=== PATIENT | female | born 1990 | race Caucasian/White ===

== ENCOUNTER → 2016-10-08 | Outpatient (CLI) | payer SELFPAY | END | disposition home or self-care (01) | LOC: MW.CHOBGYN 11:12 | PROVIDERS: ATTEND Advanced Practice Midwife | DX: Z34.90 Encounter for supervision of normal pregnancy, unspecified, unspecified trimester (principal) | CPT/HCPCS: 36415; 80305; 81003; 85025; 86592; 86762; 86803; 86850; 86900; 86901; 87086; 87340; 87389 ==

== ENCOUNTER → 2016-11-03 | Outpatient (CLI) | payer SELFPAY | LOC: MW.CHOBGYN 11:40 | PROVIDERS: ATTEND Advanced Practice Midwife | DX: O99.89 Other specified diseases and conditions complicating pregnancy, childbirth and the puerperium (principal); R94.6 Abnormal results of thyroid function studies | CPT/HCPCS: 36415; 80305; 84439; 84443; 87491; 87591; G0145 ==

== ENCOUNTER → 2016-12-01 | Outpatient (CLI) | payer SELFPAY ==
--- NOTE | 2016-12-01 14:51 | US ---
Examination: Greater than 14 weeks transabdominal ultrasound with color Doppler and M-mode evaluatio n. HISTORY: FINDINGS: LMP is 07/16/2016 EVALUATION: Anterior placenta with a unremarkable lie and grade 1. Visually amniotic fluid is within normal limits. Three-vessel cord is seen. Ventricles are within normal limits. Four chamber heart is noted. Heart rate is 130 beats per minute. BIOMETRY AND GESTATIONAL AGE: Biparietal diameter 4.5 cm. The abdominal circumference is 14.5 cm. The femoral length is 3.1 cm wit h head circumference of 16.4 cm. Gestational age is 19 weeks and 5 days. The expected date of delive ry is approximately 04/22/2017. Fetus weight is 301 grams. Overall the fetus is within the 38th perce ntile. Other detail anatomy summarized into PACs sheet after the images. No anatomical anomalies. IMPRESSION: Single active IU with vertebral fetus. Anterior placenta with grade 1, no placenta previa. No anomalies are seen. Amniotic fluid appears within normal limits.
== END | disposition home or self-care (01) ==
LOC: MW.US 10:17
PROVIDERS: ATTEND Advanced Practice Midwife
DX: Z36 Encounter for antenatal screening of mother (principal); Z34.92 Encounter for supervision of normal pregnancy, unspecified, second trimester
CPT/HCPCS: 76805; 76805-26

== ENCOUNTER → 2016-12-09 | Outpatient (CLI) | payer SELFPAY | LOC: MW.CHOBGYN 11:02 | PROVIDERS: ATTEND Nurse Practitioner Women's Health | DX: L28.2 Other prurigo (principal); R21 Rash and other nonspecific skin eruption | CPT/HCPCS: 36415; 84443; 85025; 86644; 86645; 86694; 86695; 86696; 86762; 86777; 86778 ==

== ENCOUNTER 2017-04-23 19:02 | Inpatient (IN) | payer SELFPAY ==
[2017-04-23] MEDS ORDERED: Terbutaline 1 MG/ML SDV SUBCUT PRN (20:03)
[2017-04-23] MEDS ORDERED: Methylergonovine 0.2 MG/1 ML Amp IM PRN (20:05)
[2017-04-23] MEDS ORDERED: Nalbuphine 10 MG/1 ML Vial IVPUSH PRN (20:05)
[2017-04-23] MEDS ORDERED: Water For Irrigation,Sterile 1,000 ML Container IRR PRN (20:05)
[2017-04-23] MEDS ORDERED: Misoprostol 25 MCG (1/4 of 100 MCG) Tab PO ONE (20:05)
[2017-04-23] MEDS ORDERED: Misoprostol 200 MCG Tab PO PRN (20:05)
[2017-04-23] MEDS ORDERED: Sodium Chloride 0.9% 2.5 ML Syringe FLUSH PRN (20:05)
[2017-04-23] MEDS ORDERED: Sodium Chloride 0.9% 10 ML Syringe FLUSH PRN (20:05)
[2017-04-23] MEDS ORDERED: Oxytocin/0.9 % Sodium Chloride 30 UNIT/500 ML BAG IV SCH ×2 (20:05→20:15)
[2017-04-23] MEDS ORDERED: Lidocaine 1% 50 ML MDV INJECT PRN (20:05)
[2017-04-23] MEDS ORDERED: Carboprost Tromethamine 250 MCG/1 ML Amp IM PRN (20:05)
[2017-04-23] MEDS ORDERED: Misoprostol 25 MCG (1/4 of 100 MCG) Tab VAG SCH (20:15)
--- NOTE | 2017-04-23 20:17 | PCM.LDHP ---
L&D History of Present Illness - General Date of Service: 04/23/17 Admit Problem/Dx: Admission Diagnosis/Problem Admission Diagnosis/Problem 04/23/17 20:12 26 yo EDC 09/22/2016 40 17wks, O+, R-equivocal, GBS neg. IOL Source of Information: Patient History Limitations: Reports: No Limitations - History of Present Illness Improves with: Reports: None Worsens with: Reports: None Associated Symptoms: Reports: N - Related Data Allergies/Adverse Reactions: Allergies Allergy/AdvReac Type Severity Reaction Status Date / Time cephalexin monohydrate Allergy Rash Verified 08/31/16 22:14 [From Keflex] Home Medications: Home Meds . [No Known Home Meds] 03/23/14 [History] Past Medical History - Past Health History Medical/Surgical History: Denies Medical/Surgical History Cardiovascular History: Reports: None Respiratory History: Reports: None Gastrointestinal History: Reports: None Genitourinary History: Reports: None APPLICATIONS INTERN History: Reports: None Musculoskeletal History: Reports: None Neurological History: Reports: None Psychiatric History: Reports: None Endocrine/Metabolic History: Reports: None Hematologic History: Reports: None Immunologic History: Reports: None Oncologic (Cancer) History: Reports: None Dermatologic History: Reports: None - Infectious Disease History Infectious Disease History: Reports: None - Past Surgical History Head Surgeries/Procedures: Reports: None Cardiovascular Surgical History: Reports: None GI Surgical History: Reports: None Female Surgical History: Reports: None Social & Family History - Tobacco Use Smoking Status *Q: Never Smoker Second Hand Smoke Exposure: No - Caffeine Use Caffeine Use: Reports: None - Alcohol Use Days Per Week of Alcohol Use: 0 - Recreational Drug Use Recreational Drug Use: No H&P Review of Systems - Review of Systems: Review Of Systems: See Below General: Reports: No Symptoms HEENT: Reports: No Symptoms Pulmonary: Reports: No Symptoms Cardiovascular: Reports: No Symptoms Gastrointestinal: Reports: No Symptoms Genitourinary: Reports: No Symptoms Musculoskeletal: Reports: No Symptoms Skin: Reports: No Symptoms Psychiatric: Reports: No Symptoms Neurological: Reports: No Symptoms Hematologic/Lymphatic: Reports: No Symptoms Immunologic: Reports: No Symptoms L&D Exam - Exam Exam: See Below - Vital Signs Weight: 67.8 kg - Exam General: Alert, Oriented, Cooperative HEENT: Hearing Intact Lungs: Clear to Auscultation, Normal Respiratory Effort Cardiovascular: Regular Rate, Regular Rhythm GI/Abdominal Exam: Soft, Non-Tender, No Distention, No Mass Rectal Exam: Deferred Back Exam: Full Range of Motion Extremities: Normal Range of Motion, Non-Tender, No Pedal Edema, Normal Capillary Refill Skin: Warm, Dry, Intact Neurological: Reflexes Equal Bilateral, Normal Speech, Normal Tone Psychiatric: Alert - Problem List (1) Supervision of normal IUP (intrauterine ) in primigravida SNOMED Code(s): 92499822, 185251356, 306145617, 922041436 ICD Code: Z34.00 - ENCNTR FOR SUPRVSN OF NORMAL FIRST , UNSP TRIMESTER Status: Acute Priority: High Current Visit: Yes Qualifiers: Trimester: third trimester Qualified Code(s): Z34.03 - Encounter for supervision of normal first , third trimester Problem List Initiated/Reviewed/Updated: Yes Orders Last 24hrs: Active Orders 24 hr Category Date Time Status Bedrest Bathroom Privileges [RC] ASDIRECTED Care 04/23/17 20:03 Ordered Communication Order [RC] ASDIRECTED Care 04/23/17 20:03 Ordered Communication Order [RC] ASDIRECTED Care 04/23/17 20:03 Ordered Communication Order [RC] ASDIRECTED Care 04/23/17 20:03 Ordered Notify Provider [RC] PRN Care 04/23/17 20:03 Ordered Notify Provider [RC] PRN Care 04/23/17 20:03 Ordered Notify Provider [RC] STAT Care 04/23/17 20:03 Ordered Oxygen Therapy [RC] ASDIRECTED Care 04/23/17 20:03 Ordered Vaginal Exam [RC] PRN Care 04/23/17 20:03 Ordered Vital Signs [RC] PER UNIT ROUTINE Care 04/23/17 20:03 Ordered Regular Diet [DIET] Diet 04/24/17 Breakfast Ordered Misoprostol [Cytotec] Med 04/23/17 20:15 Ordered 25 mcg PO Q4H Misoprostol [Cytotec] Med 04/23/17 20:15 Ordered 25 mcg VAG .ONCE Misoprostol [Cytotec] Med 04/23/17 20:03 Ordered 25 mcg VAG Q4H PRN Oxytocin 30 Units in 0.9% Sodium Chloride @ 2 MUNITS/ Med 04/23/17 20:15 Ordered MIN(500ml) Oxytocin/0.9 % Sodium Chloride [Oxytocin 30 Unit/500 ML -NS] 30 unit in 500 ml IV TITRATE Terbutaline [Brethine] Med 04/23/17 20:03 Ordered 0.25 mg SUBCUT ASDIRECTED PRN Medication Administration Instruction [OM.PC] Q3H Oth 04/23/17 20:15 Ordered Medication Orders Oxytocin/Sodium Chloride (Oxytocin 30 Unit/500 Ml-Ns) 30 unit in 500 mls @ 2 mls/hr IV TITRATE MARCIANO; 2 MUNITS/MIN PRN Reason: Protocol Misoprostol (Cytotec) 25 mcg VAG .ONCE MARCIANO Misoprostol (Cytotec) 25 mcg VAG Q4H PRN PRN Reason: Cervical Ripening Misoprostol (Cytotec) 25 mcg PO Q4H MARCIANO Terbutaline Sulfate (Brethine) 0.25 mg SUBCUT ASDIRECTED PRN PRN Reason: Tacysystole Assessment/Plan Comment:: IOL A: 26 yo EDC 09/22/2016 40 17wks, O+, R-equivocal, GBS neg. IOL P: Admit, IOL via cytotec then pitocin per protocol, epidural prn. anticipate
[2017-04-23] MEDS: Lactated Ringers 1,000 ML IV SCH (20:38)
[2017-04-24] MEDS: Misoprostol 25 MCG (1/4 of 100 MCG) Tab PO SCH ×3 (00:11→07:13)
[2017-04-24] MEDS: Misoprostol 25 MCG (1/4 of 100 MCG) Tab VAG PRN ×2 (03:02→07:14)
[2017-04-24] MEDS: Lactated Ringers 1,000 ML IV SCH (08:16)
[2017-04-24] MEDS ORDERED: fentaNYL 100 MCG/2 ML SDV ONE (09:53)
[2017-04-24] MEDS ORDERED: Ropivacaine 0.2% 2 MG/ML 20 ML SDV ONE (09:54)
[2017-04-24] MEDS ORDERED: Ropivacaine HCl/PF 0 ML ONE (09:55)
--- NOTE | 2017-04-24 11:09 | PCM.PREANE ---
Preanesthetic Assessment - Anesthesia/Transfusion/Family Hx Anesthesia History: No Prior Anesthesia Family History of Anesthesia Reaction: No Transfusion History: No Prior Transfusion(s) Additional History: Pt denies any medical problems or personal or family hx of bleeding or clotting problems - Review of Systems General: No Symptoms Pulmonary: No Symptoms Cardiovascular: No Symptoms Gastrointestinal: No Symptoms Neurological: No Symptoms Other: Reports: None - Physical Assessment Height: 1.6 m Weight: 72.575 kg ASA Class: 2 Mental Status: Alert & Oriented x3 Dentition: Reports: Normal Dentition ROM/Head Extension: Full - Lab Values: Laboratory Last Values WBC 10.87 K/uL (4.0-11.0) 04/23/17 20:35 RBC 4.10 M/uL (4.30-5.90) L 04/23/17 20:35 Hgb 12.0 g/dL (12.0-16.0) 04/23/17 20:35 Hct 35.9 % (36.0-46.0) L 04/23/17 20:35 MCV 87.6 fL (80.0-98.0) 04/23/17 20:35 MCH 29.3 pg (27.0-32.0) 04/23/17 20:35 MCHC 33.4 g/dL (31.0-37.0) 04/23/17 20:35 RDW Std Deviation 44.0 fl (28.0-62.0) 04/23/17 20:35 RDW Coeff of Avis 14 % (11.0-15.0) 04/23/17 20:35 Plt Count 188 K/uL (150-400) 04/23/17 20:35 MPV 11.00 fL (7.40-12.00) 04/23/17 20:35 Nucleated RBC % 0.0 /100WBC 04/23/17 20:35 Nucleated RBCs # 0 K/uL 04/23/17 20:35 Blood Type O POSITIVE 04/23/17 20:35 Antibody Screen NEGATIVE 04/23/17 20:35 - Allergies Allergies/Adverse Reactions: Allergies Allergy/AdvReac Type Severity Reaction Status Date / Time cephalexin monohydrate Allergy Rash Verified 04/23/17 21:06 [From Keflex] - Acknowledgements Anesthesia Type Planned: Epidural Pt an Appropriate Candidate for the Planned Anesthesia: Yes Alternatives and Risks of Anesthesia Discussed w Pt/Guardian: Yes Pt/Guardian Understands and Agrees with Anesthesia Plan: Yes PreAnesthesia Questionnaire - Past Health History Medical/Surgical History: Denies Medical/Surgical History Cardiovascular History: Reports: None Respiratory History: Reports: None Gastrointestinal History: Reports: None Genitourinary History: Reports: None PHOTOGRAPHER NEWS History: Reports: Musculoskeletal History: Reports: None Neurological History: Reports: None Psychiatric History: Reports: None Endocrine/Metabolic History: Reports: None Hematologic History: Reports: None Immunologic History: Reports: None Oncologic (Cancer) History: Reports: None Dermatologic History: Reports: None - Infectious Disease History Infectious Disease History: Reports: None - Past Surgical History Female Surgical History: Reports: None - SUBSTANCE USE Smoking Status *Q: Never Smoker Second Hand Smoke Exposure: No Days Per Week of Alcohol Use: 0 Recreational Drug Use History: Yes Recreational Drug Type: Reports: Marijuana/Hashish - HOME MEDS Home Medications: Home Meds PNV95/Ferrous Fumarate/FA [ Tablet] 04/23/17 [History] - CURRENT (IN HOUSE) MEDS Current Meds: Current Medications Carboprost Tromethamine (Hemabate Ds) 250 mcg IM ASDIRECTED PRN PRN Reason: Post Hemorrhage Oxytocin/Sodium Chloride (Oxytocin 30 Unit/500 Ml-Ns) 30 unit in 500 mls @ 2 mls/hr IV TITRATE MARCIANO; 2 MUNITS/MIN PRN Reason: Protocol Lactated Ringer's (Ringers, Lactated) 1,000 mls @ 150 mls/hr IV ASDIRECTED MARCIANO Last Admin: 04/24/17 08:16 Dose: 150 mls/hr Oxytocin/Sodium Chloride (Oxytocin 30 Unit/500 Ml-Ns) 30 unit in 500 mls @ 999 mls/hr IV TITRATE MARCIANO Lidocaine HCl (Xylocaine 1%) 50 ml INJECT .ONCE PRN PRN Reason: Laceration repair Methylergonovine Maleate (Methergine) 0.2 mg IM ASDIRECTED PRN PRN Reason: Post Hemorrhage Misoprostol (Cytotec) 25 mcg VAG .ONCE MARCIANO Last Admin: 04/23/17 20:51 Dose: 25 mcg Misoprostol (Cytotec) 25 mcg VAG Q4H PRN PRN Reason: Cervical Ripening Last Admin: 04/24/17 07:14 Dose: 25 mcg Misoprostol (Cytotec) 25 mcg PO Q4H MARCIANO Last Admin: 04/24/17 07:13 Dose: 25 mcg Misoprostol (Cytotec) 200 mcg PO .ONCE PRN PRN Reason: Post Hemorrhage Nalbuphine HCl (Nubain) 10 mg IVPUSH Q1H PRN PRN Reason: Pain (severe 7-10) Last Admin: 04/24/17 08:12 Dose: 10 mg Sodium Chloride (Saline Flush) 10 ml FLUSH ASDIRECTED PRN PRN Reason: Keep Vein Open Sodium Chloride (Saline Flush) 2.5 ml FLUSH ASDIRECTED PRN PRN Reason: Keep Vein Open Sterile Water (Sterile Water For Irrigation) 1,000 ml IRR ASDIRECTED PRN PRN Reason: delivery Terbutaline Sulfate (Brethine) 0.25 mg SUBCUT ASDIRECTED PRN PRN Reason: Tacysystole Discontinued Medications Fentanyl (Sublimaze) Confirm Administered Dose 300 mcg .ROUTE .STK-MED ONE Stop: 04/24/17 09:54 Ropivacaine (Naropin 0.2%) Confirm Administered Dose 100 mls @ as directed .ROUTE .STK-MED ONE Stop: 04/24/17 09:56 Misoprostol (Cytotec) 25 mcg PO ONETIME ONE Stop: 04/23/17 20:06 Last Admin: 04/23/17 20:51 Dose: 25 mcg Ropivacaine (Naropin 0.2%) Confirm Administered Dose 20 ml .ROUTE .STK-MED ONE Stop: 04/24/17 09:55
[2017-04-24] MEDS ORDERED: Docusate Sodium 100 MG Cap PO PRN (11:10)
[2017-04-24] MEDS ORDERED: Witch Hazel Medicated Pads 40/Jar TOP PRN (11:10)
[2017-04-24] MEDS ORDERED: Acetaminophen 500 MG Tab PO PRN ×2 (11:10)
[2017-04-24] MEDS ORDERED: Ibuprofen 800 MG Tab PO PRN (11:10)
[2017-04-24] MEDS ORDERED: Bisacodyl 10 MG Supp RECTAL PRN (11:10)
[2017-04-24] MEDS ORDERED: oxyCODONE 5 MG Tab PO PRN (11:10)
[2017-04-24] MEDS ORDERED: Lanolin 100% Cream 7 GM Tube TOP PRN (11:10)
[2017-04-24] MEDS ORDERED: Benzocaine/Menthol 20%-0.5% Spray 78 GM Cannister TOP PRN (11:10)
[2017-04-24] MEDS ORDERED: Ibuprofen 400 MG Tab PO PRN (11:10)
--- NOTE | 2017-04-24 11:21 | PCM.DEL ---
L & D Note - General Info Date of Service: 04/24/17 Mother's Due Date: 04/22/17 - Delivery Note Cervical Ripening Method: Misoprostil Delivery Outcome: Stillbirth Delivery Method: Spontaneous Vaginal Delivery-Single Infant Delivery Mode: Spontaneous Presentation: Vertex Nuchal Cord: None Anesthesia Type: None Amniotic Fluid Description: Clear Episiotomy Type: Midline Laceration: None Suture type: Vicryl Suture size: 3-0 Placenta: Intact, Spontaneous Cord: 3 Vessels Estimated Blood Loss: 200 Resuscitation Needed: No Zavalla: Stimulated Second Stage Interventions: Reports: Pushing, McRobert's Position Delivery Comments (Free Text/Narrative):: FHT down to [address] Scott called to bs and her arrived prior to delivery. FHT back up at time of delivery. viable male over MLE. Head delivered, shoulders and body followed easily. Cord clamped and cut. to warmer with RN, resp, and anes at bs for eval. Pitocin to IVF. Cord blood collected. Placenta delivered grossly intact. MLE repaired in usual manor with 3-0 sunita. APGARS pending, Wt: 6lb 3oz. EBL 200cc. Infant and mother left in stable condition for recovery. Induction Criteria - Hall Score Hall Score Dilation: 1-2 cm Hall Score Effacement: 40-50% Hall Score Infant's Station: -3 Hall Score Consistency: Soft Hall Score Cervix Position: Posterior Hall Score Total: 4 Hall Score Presenting Part: Reports: Cephalic - Induction Gestational Age >/= 39 wks: Yes Estimated Pelvis: Reports: Adequate Reassuring Monitoring Strip: Yes Absence of Tachy Systole: Yes - Augmentation Estimated Pelvis: Reports: Adequate - General Info Date of Service: 04/24/17 Admission Dx/Problem (Free Text): Admission Diagnosis/Problem Admission Diagnosis/Problem 04/23/17 20:12 26 yo EDC 09/22/2016 40 17wks, O+, R-equivocal, GBS neg. IOL Functional Status: Reports: Pain Controlled - Review of Systems General: Reports: No Symptoms HEENT: Reports: No Symptoms Pulmonary: Reports: No Symptoms Cardiovascular: Reports: No Symptoms Gastrointestinal: Reports: No Symptoms Genitourinary: Reports: No Symptoms Musculoskeletal: Reports: No Symptoms Skin: Reports: No Symptoms Neurological: Reports: No Symptoms Psychiatric: Reports: No Symptoms - Patient Data Weight - Most Recent: 72.575 kg Lab Results Last 24 Hours: Laboratory Results - last 24 hr 04/23/17 04/23/17 Range/Units 20:35 20:35 WBC 10.87 (4.0-11.0) K/uL RBC 4.10 L (4.30-5.90) M/uL Hgb 12.0 (12.0-16.0) g/dL Hct 35.9 L (36.0-46.0) % MCV 87.6 (80.0-98.0) fL MCH 29.3 (27.0-32.0) pg MCHC 33.4 (31.0-37.0) g/dL RDW Std Deviation 44.0 (28.0-62.0) fl RDW Coeff of Avis 14 (11.0-15.0) % Plt Count 188 (150-400) K/uL MPV 11.00 (7.40-12.00) fL Nucleated RBC % 0.0 /100WBC Nucleated RBCs # 0 K/uL Blood Type O POSITIVE Antibody Screen NEGATIVE Med Orders - Current: Current Medications Discontinued Medications Carboprost Tromethamine (Hemabate Ds) 250 mcg IM ASDIRECTED PRN PRN Reason: Post Hemorrhage Fentanyl (Sublimaze) Confirm Administered Dose 300 mcg .ROUTE .STK-MED ONE Stop: 04/24/17 09:54 Oxytocin/Sodium Chloride (Oxytocin 30 Unit/500 Ml-Ns) 30 unit in 500 mls @ 2 mls/hr IV TITRATE MARCIANO; 2 MUNITS/MIN PRN Reason: Protocol Lactated Ringer's (Ringers, Lactated) 1,000 mls @ 150 mls/hr IV ASDIRECTED MARCIANO Last Admin: 04/24/17 08:16 Dose: 150 mls/hr Oxytocin/Sodium Chloride (Oxytocin 30 Unit/500 Ml-Ns) 30 unit in 500 mls @ 999 mls/hr IV TITRATE MARCIANO Ropivacaine (Naropin 0.2%) Confirm Administered Dose 100 mls @ as directed .ROUTE .STK-MED ONE Stop: 04/24/17 09:56 Lidocaine HCl (Xylocaine 1%) 50 ml INJECT .ONCE PRN PRN Reason: Laceration repair Methylergonovine Maleate (Methergine) 0.2 mg IM ASDIRECTED PRN PRN Reason: Post Hemorrhage Misoprostol (Cytotec) 25 mcg VAG .ONCE MARCIANO Last Admin: 04/23/17 20:51 Dose: 25 mcg Misoprostol (Cytotec) 25 mcg VAG Q4H PRN PRN Reason: Cervical Ripening Last Admin: 04/24/17 07:14 Dose: 25 mcg Misoprostol (Cytotec) 25 mcg PO ONETIME ONE Stop: 04/23/17 20:06 Last Admin: 04/23/17 20:51 Dose: 25 mcg Misoprostol (Cytotec) 25 mcg PO Q4H MARCIANO Last Admin: 04/24/17 07:13 Dose: 25 mcg Misoprostol (Cytotec) 200 mcg PO .ONCE PRN PRN Reason: Post Hemorrhage Nalbuphine HCl (Nubain) 10 mg IVPUSH Q1H PRN PRN Reason: Pain (severe 7-10) Last Admin: 04/24/17 08:12 Dose: 10 mg Ropivacaine (Naropin 0.2%) Confirm Administered Dose 20 ml .ROUTE .STK-MED ONE Stop: 04/24/17 09:55 Sodium Chloride (Saline Flush) 10 ml FLUSH ASDIRECTED PRN PRN Reason: Keep Vein Open Sodium Chloride (Saline Flush) 2.5 ml FLUSH ASDIRECTED PRN PRN Reason: Keep Vein Open Sterile Water (Sterile Water For Irrigation) 1,000 ml IRR ASDIRECTED PRN PRN Reason: delivery Terbutaline Sulfate (Brethine) 0.25 mg SUBCUT ASDIRECTED PRN PRN Reason: Tacysystole - Exam General: Alert, Oriented, Cooperative, No Acute Distress Lungs: Normal Respiratory Effort GI/Abdominal Exam: Soft, Non-Tender (Female) Exam: Normal External Exam, Normal Bimanual Exam, Vaginal Bleeding Back Exam: Full Range of Motion Extremities: Normal Range of Motion, Non-Tender, No Pedal Edema, Normal Capillary Refill Skin: Warm, Dry, Intact Wound/Incisions: Healing Well Neurological: No New Focal Deficit, Normal Speech, Normal Tone Psy/Mental Status: Alert, Normal Affect, Normal Mood - Problem List & Annotations (1) Supervision of normal IUP (intrauterine ) in primigravida SNOMED Code(s): 85793781, 791014339, 485227251, 256601168 Code(s): Z34.00 - ENCNTR FOR SUPRVSN OF NORMAL FIRST , UNSP TRIMESTER Status: Acute Priority: High Current Visit: Yes Qualifiers: Trimester: third trimester Qualified Code(s): Z34.03 - Encounter for supervision of normal first , third trimester (2) (normal spontaneous vaginal delivery) SNOMED Code(s): 92920531 Code(s): O80 - ENCOUNTER FOR FULL-TERM UNCOMPLICATED DELIVERY Status: Acute Priority: High Current Visit: Yes - Problem List Review Problem List Initiated/Reviewed/Updated: Yes - My Orders Last 24 Hours: My Active Orders 04/23/17 20:03 Oxygen Therapy [RC] ASDIRECTED Vaginal Exam [RC] PRN Vital Signs [RC] PER UNIT ROUTINE 04/23/17 20:05 Heart Tones [RC] CONTINUOUS Non Stress Test [RC] PER UNIT ROUTINE May Shower [RC] ASDIRECTED Notify Provider [RC] PRN 04/24/17 11:10 Acetaminophen [Tylenol Extra Strength] 1,000 mg PO Q4H PRN Acetaminophen [Tylenol Extra Strength] 500 mg PO Q4H PRN Benzocaine/Menthol [Dermoplast Pain Relief 20%-0.5% [place]] 78 gm TOP ASDIRECTED PRN Bisacodyl [Dulcolax] 10 mg RECTAL .ONCE PRN Docusate Sodium [Colace] 100 mg PO BID PRN Ibuprofen [Motrin] 400 mg PO Q4H PRN Ibuprofen [Motrin] 800 mg PO Q6H PRN Lanolin [Lansinoh HPA] See Dose Instructions TOP ASDIRECTED PRN Witch Raisa [Tucks] 1 pad TOP ASDIRECTED PRN oxyCODONE 5 mg PO Q2H PRN Resuscitation Status Routine 04/24/17 11:11 Patient Status [ADT] Routine May Shower [RC] ASDIRECTED Up ad Sirena [RC] ASDIRECTED Vital Signs [RC] PER UNIT ROUTINE Assess Lochia [WOMSER] Per Unit Routine Assess Uterine Involution [WOMSER] Per Unit Routine Peripheral IV Discontinue [OM.PC] Routine 04/24/17 Lunch Regular Diet [DIET] - Assessment Assessment:: of viable male over MLE. APGARS pending, Wt: 6lb 3oz, Mother stable, MLE repaired, eBL 200cc. - Plan Plan:: IOL A: 26 yo EDC 09/22/2016 40 17wks, O+, R-equivocal, GBS neg. IOL P: Admit, IOL via cytotec then pitocin per protocol, epidural prn. anticipate Delivery P: routine pp plan of care.
--- NOTE | 2017-04-24 14:49 | PCM48HPAN ---
Post Anesthesia Note - EVALUATION WITHIN 48HRS OF ANESTHETIC Vital Signs in Normal Range: Yes Patient Participated in Evaluation: Yes Respiratory Function Stable: Yes Airway Patent: Yes Cardiovascular Function Stable: Yes Hydration Status Stable: Yes Pain Control Satisfactory: Yes Nausea and Vomiting Control Satisfactory: Yes Mental Status Recovered: Yes - COMMENTS/OBSERVATIONS Free Text/Narrative:: Denies any complaints at this time.
[2017-04-25 08:13] VITALS: BP 101/55
--- NOTE | 2017-04-25 10:17 | PCM.PNPP ---
- General Info Date of Service: 04/25/17 Functional Status: Reports: Pain Controlled - Review of Systems General: Reports: No Symptoms HEENT: Reports: No Symptoms Pulmonary: Reports: No Symptoms Cardiovascular: Reports: No Symptoms Gastrointestinal: Reports: No Symptoms Genitourinary: Reports: No Symptoms Musculoskeletal: Reports: No Symptoms Skin: Reports: No Symptoms Neurological: Reports: No Symptoms Psychiatric: Reports: No Symptoms - General Info Date of Service: 04/25/17 - Patient Data Vital Signs - Most Recent: Last Vital Signs Temp 36.8 C 04/25/17 08:00 Pulse 65 04/25/17 08:00 Resp 14 04/25/17 08:00 BP 101/55 L 04/25/17 08:00 Pulse Ox 97 04/25/17 08:00 Weight - Most Recent: 72.575 kg Med Orders - Current: Current Medications Acetaminophen (Tylenol Extra Strength) 500 mg PO Q4H PRN PRN Reason: Pain Acetaminophen (Tylenol Extra Strength) 1,000 mg PO Q4H PRN PRN Reason: Pain Benzocaine/Menthol (Dermoplast Pain Relief 20%-0.5% [place]) 78 gm TOP ASDIRECTED PRN PRN Reason: Perineal Comfort Measure Last Admin: 04/24/17 17:44 Dose: 1 can Bisacodyl (Dulcolax) 10 mg RECTAL .ONCE PRN PRN Reason: Constipation Docusate Sodium (Colace) 100 mg PO BID PRN PRN Reason: Constipation Last Admin: 04/24/17 21:43 Dose: 100 mg Emollient Ointment (Lansinoh Hpa) 0 gm TOP ASDIRECTED PRN PRN Reason: Sore Nipples Ibuprofen (Motrin) 400 mg PO Q4H PRN PRN Reason: Pain Ibuprofen (Motrin) 800 mg PO Q6H PRN PRN Reason: Pain Last Admin: 04/24/17 17:44 Dose: 800 mg Oxycodone HCl (Oxycodone) 5 mg PO Q2H PRN PRN Reason: Pain Witch Raisa (Tucks) 1 pad TOP ASDIRECTED PRN PRN Reason: comfort care Last Admin: 04/24/17 17:44 Dose: 1 container Discontinued Medications Carboprost Tromethamine (Hemabate Ds) 250 mcg IM ASDIRECTED PRN PRN Reason: Post Hemorrhage Fentanyl (Sublimaze) Confirm Administered Dose 300 mcg .ROUTE .STK-MED ONE Stop: 04/24/17 09:54 Last Admin: 04/24/17 21:35 Dose: Not Given Oxytocin/Sodium Chloride (Oxytocin 30 Unit/500 Ml-Ns) 30 unit in 500 mls @ 2 mls/hr IV TITRATE MARCIANO; 2 MUNITS/MIN PRN Reason: Protocol Lactated Ringer's (Ringers, Lactated) 1,000 mls @ 150 mls/hr IV ASDIRECTED MARCIANO Last Admin: 04/24/17 08:16 Dose: 150 mls/hr Oxytocin/Sodium Chloride (Oxytocin 30 Unit/500 Ml-Ns) 30 unit in 500 mls @ 999 mls/hr IV TITRATE MARCIANO Ropivacaine (Naropin 0.2%) Confirm Administered Dose 100 mls @ as directed .ROUTE .STK-MED ONE Stop: 04/24/17 09:56 Last Admin: 04/24/17 21:36 Dose: Not Given Lidocaine HCl (Xylocaine 1%) 50 ml INJECT .ONCE PRN PRN Reason: Laceration repair Methylergonovine Maleate (Methergine) 0.2 mg IM ASDIRECTED PRN PRN Reason: Post Hemorrhage Misoprostol (Cytotec) 25 mcg VAG .ONCE MARCIANO Last Admin: 04/23/17 20:51 Dose: 25 mcg Misoprostol (Cytotec) 25 mcg VAG Q4H PRN PRN Reason: Cervical Ripening Last Admin: 04/24/17 07:14 Dose: 25 mcg Misoprostol (Cytotec) 25 mcg PO ONETIME ONE Stop: 04/23/17 20:06 Last Admin: 04/23/17 20:51 Dose: 25 mcg Misoprostol (Cytotec) 25 mcg PO Q4H MARCIANO Last Admin: 04/24/17 07:13 Dose: 25 mcg Misoprostol (Cytotec) 200 mcg PO .ONCE PRN PRN Reason: Post Hemorrhage Nalbuphine HCl (Nubain) 10 mg IVPUSH Q1H PRN PRN Reason: Pain (severe 7-10) Last Admin: 04/24/17 08:12 Dose: 10 mg Ropivacaine (Naropin 0.2%) Confirm Administered Dose 20 ml .ROUTE .STK-MED ONE Stop: 04/24/17 09:55 Last Admin: 04/24/17 21:36 Dose: Not Given Sodium Chloride (Saline Flush) 10 ml FLUSH ASDIRECTED PRN PRN Reason: Keep Vein Open Sodium Chloride (Saline Flush) 2.5 ml FLUSH ASDIRECTED PRN PRN Reason: Keep Vein Open Sterile Water (Sterile Water For Irrigation) 1,000 ml IRR ASDIRECTED PRN PRN Reason: delivery Terbutaline Sulfate (Brethine) 0.25 mg SUBCUT ASDIRECTED PRN PRN Reason: Tacysystole - Infant Interaction Disposition, : in Room with Family Infant Interaction: Holding Infant Infant Feeding: Attempted ; Nursed Fair/Poor Support Person: Mother, Friend - Recovery Exam Fundal Tone: Firm Fundal Level: 1 Fingerbreadths Below Umbilicus Fundal Placement: Midline Lochia Amount: Scant Lochia Color: Rubra/Red Perineum Description: Intact, Minimal Bruising/Swelling Other Perinuem Description: episiotomy Episiotomy/Laceration: Approximated Bladder Status: Nonpalpable Urinary Elimination: Voided - Exam General: Alert, Oriented HEENT: Pupils Equal Neck: Supple Lungs: Clear to Auscultation, Normal Respiratory Effort Cardiovascular: Regular Rate, Regular Rhythm GI/Abdominal Exam: Normal Bowel Sounds, Soft, Non-Tender, No Organomegaly, No Distention, No Abnormal Bruit, No Mass, Pelvis Stable Extremities: Normal Inspection, Normal Range of Motion, Non-Tender, No Pedal Edema, Normal Capillary Refill Skin: Warm, Dry, Intact Wound/Incisions: Healing Well Neurological: No New Focal Deficit Psy/Mental Status: Alert, Normal Affect, Normal Mood - Problem List Review Problem List Initiated/Reviewed/Updated: Yes - Assessment Assessment:: of viable male over MLE. APGARS pending, Wt: 6lb 3oz, Mother stable, MLE repaired, eBL 200cc. - Plan Plan:: IOL A: 26 yo EDC 09/22/2016 40 17wks, O+, R-equivocal, GBS neg. IOL P: Admit, IOL via cytotec then pitocin per protocol, epidural prn. anticipate Delivery P: routine pp plan of care.
== END 2017-04-25 12:55 | disposition home or self-care (01) | DRG 775 ==
LOC: MW.OBCHECK 19:02 → MW.OB 19:03 → MW.OBCHECK 20:00 → OBSVTOIN 04-24 10:56
PROVIDERS: ADMIT Obstetrics & Gynecology; ATTEND Obstetrics & Gynecology
PROC: 10E0XZZ Delivery of Products of Conception, External Approach (ICD-10-PCS; principal; 2017-04-24)
PROC: 0W8NXZZ Division of Female Perineum, External Approach (ICD-10-PCS; 2017-04-24)
PROC: 3E0P7GC Introduction of Other Therapeutic Substance into Female Reproductive, Via Natural or Artificial Opening (ICD-10-PCS; 2017-04-24)
PROC: 3E033VJ Introduction of Other Hormone into Peripheral Vein, Percutaneous Approach (ICD-10-PCS; 2017-04-24)
DX: O80 Encounter for full-term uncomplicated delivery (principal); Z3A.40 40 weeks gestation of pregnancy; Z37.0 Single live birth
CPT/HCPCS: 36415; 59025; 59409; 85027; 86850; 86900; 86901; A9270-GY; J2300; J7120

== ENCOUNTER 2018-03-05 17:50 | Emergency (ER) | payer SELFPAY ==
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
[2018-03-05 18:10] VITALS: BP 121/74
[2018-03-05] MEDS ORDERED: Ketorolac 60 MG/2 ML SDV IM ONE (18:26)
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
== END 2018-03-05 19:27 | disposition home or self-care (01) ==
LOC: MW.ED 17:50
DX: S20.219A Contusion of unspecified front wall of thorax, initial encounter (principal); S60.212A Contusion of left wrist, initial encounter; S60.211A Contusion of right wrist, initial encounter; Z88.1 Allergy status to other antibiotic agents; Y04.0XXA Assault by unarmed brawl or fight, initial encounter
CPT/HCPCS: 71046; 73100; 96372; 99283; J1885

== ENCOUNTER 2018-04-21 10:34 | Emergency (ER) | payer SELFPAY ==
--- NOTE | 2018-04-21 10:46 | EDM.PDOC ---
ED HPI GENERAL MEDICAL PROBLEM - General Chief Complaint: Gastrointestinal Problem Stated Complaint: VOMITTING Time Seen by Provider: 04/21/18 10:37 Source of Information: Reports: Patient History Limitations: Reports: No Limitations - History of Present Illness INITIAL COMMENTS - FREE TEXT/NARRATIVE: HISTORY AND PHYSICAL: History of present illness: Patient is a 27 year old female presents to the emergency room with complaints of nausea and vomiting. She states she is 6 weeks and had been using some leftover Zofran from a previous . She states she has ran out and has not been able to manage her nausea and vomiting. She denies any related problems, no abdominal pain or cramping or vaginal bleeding/discharge. Denies any fever, chills, chest pain or shortness of breath. Denies any abdominal pain, diarrhea, constipation or dysuria. LMP 03/09/2018. P: 1 Review of systems: As per history of present illness and below otherwise all systems reviewed and negative. Past medical history: As per history of present illness and as reviewed below otherwise noncontributory. Surgical history: As per history of present illness and as reviewed below otherwise noncontributory. Social history: No reported history of drug or alcohol abuse. Family history: As per history of present illness and as reviewed below otherwise noncontributory. Physical exam: General: Well-developed and well-nourished 27 she'll female. Alert and oriented. Nontoxic appearing and in no acute distress. HEENT: Atraumatic, normocephalic, pupils equal and reactive bilaterally, negative for conjunctival pallor or scleral icterus, mucous membranes moist, throat clear, neck supple, nontender, trachea midline. No drooling or trismus noted. No meningeal signs Lungs: Clear to auscultation, breath sounds equal bilaterally, chest nontender. Heart: S1S2, regular rate and rhythm without overt murmur Abdomen: Soft, nondistended, nontender. Negative for masses or hepatosplenomegaly. Negative for costovertebral tenderness. Pelvis: Stable nontender. Genitourinary: Deferred. Rectal: Deferred. Skin: Intact, warm, dry. No lesions or rashes noted. Extremities: Atraumatic, negative for cords or calf pain. Neurovascular unremarkable. Neuro: Awake, alert, oriented. Cranial nerves II through XII unremarkable. Cerebellum unremarkable. Motor and sensory unremarkable throughout. Exam nonfocal. Notes: Patient declines the need for any labs done at this time. She states that her has gone well and has no concerns other than her nausea and vomiting at this time. She states she has an appointment to follow up with her BUSINESS SERVICES REPRESENTATIVE at 10 weeks gestation. Patient states she feels improved after the IV fluids and Zofran. We'll give her a 15 tab supply of Zofran. If she is to use those prior to her appointment encourage her to follow up sooner. She denies any further questions or concerns at this time. Diagnostics: UA (declined) Therapeutics: IV fluid, Zofran Prescription: Zofran ODT (#15) Impression: Nausea and Vomiting Plan: 1. Small frequent sips of fluids to prevent dehydration. Small frequent meals spread out throughout the day. 2. Use the Zofran as needed for nausea and vomiting management. 3. Please follow-up with your BUSINESS SERVICES REPRESENTATIVE in the next couple days. Return to the ED as needed and as discussed. Definitive disposition and diagnosis as appropriate pending reevaluation and review of above. 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: Musculoskeletal History: Reports: None Neurological History: Reports: None Psychiatric History: Reports: None Endocrine/Metabolic History: Reports: None Hematologic History: Reports: None Immunologic History: Reports: None Oncologic (Cancer) History: Reports: None Dermatologic History: Reports: None - Infectious Disease History Infectious Disease History: Reports: None - Past Surgical History Female Surgical History: Reports: None Social & Family History - Family History Family Medical History: Noncontributory OBGYN: Reports: - Caffeine Use Caffeine Use: Reports: None ED ROS GENERAL - Review of Systems Review Of Systems: ROS reveals no pertinent complaints other than HPI. ED EXAM, GI/ABD - Physical Exam Exam: See Below (See dictation) Course - Vital Signs Last Recorded V/S: Last Vital Signs Temp 97.5 F 04/21/18 10:47 Pulse 135 H 04/21/18 10:47 Resp 18 04/21/18 10:47 BP 129/80 04/21/18 10:47 Pulse Ox 99 04/21/18 10:47 - Orders/Labs/Meds Orders: Active Orders 24 hr Category Date Time Status UA W/MICROSCOPIC [URIN] Stat Lab 04/21/18 10:54 Stop Req Meds: Medications Discontinued Medications Generic Name Dose Route Start Last Admin Trade Name Freq PRN Reason Stop Dose Admin Sodium Chloride 1,000 mls @ 999 mls/hr 04/21/18 10:54 04/21/18 11:38 Normal Saline IV 04/21/18 11:54 999 mls/hr STAT ONE Administration Ondansetron HCl 4 mg 04/21/18 10:54 04/21/18 11:39 Zofran IVPUSH 04/21/18 10:55 4 mg ONETIME ONE Administration Ondansetron HCl 4 mg 04/21/18 12:27 Zofran Odt PO 04/21/18 12:28 ONETIME ONE Departure - Departure Time of Disposition: 12:29 Disposition: Home, Self-Care 01 Clinical Impression: Nausea and vomiting during - Discharge Information Prescriptions: Ondansetron [Zofran ODT] 4 mg PO Q6H PRN #15 tab.dis PRN Reason: Nausea Instructions: Morning Sickness, [id number] Referrals: PCP,None [Primary Care Provider] - Forms: ED Department Discharge Additional Instructions: The following information is given to patients seen in the emergency department who are being discharged to home. This information is to outline your options for follow-up care. We provide all patients seen in our emergency department with a follow-up referral. The need for follow-up, as well as the timing and circumstances, are variable depending upon the specifics of your emergency department visit. If you don't have a primary care physician on staff, we will provide you with a referral. We always advise you to contact your personal physician following an emergency department visit to inform them of the circumstance of the visit and for follow-up with them and/or the need for any referrals to a consulting specialist. The emergency department will also refer you to a specialist when appropriate. This referral assures that you have the opportunity for follow-up care with a specialist. All of these measure are taken in an effort to provide you with optimal care, which includes your follow-up. Under all circumstances we always encourage you to contact your private physician who remains a resource for coordinating your care. When calling for follow-up care, please make the office aware that this follow-up is from your recent emergency room visit. If for any reason you are refused follow-up, please contact the [facility] Emergency Department at and asked to speak to the emergency department charge nurse. [facility] Primary [facility] [address] [place] [id number] 1. Small frequent sips of fluids to prevent dehydration. Small frequent meals spread out throughout the day. 2. Use the Zofran as needed for nausea and vomiting management. 3. Please follow-up with your BUSINESS SERVICES REPRESENTATIVE in the next couple days. Return to the ED as needed and as discussed. - My Orders Last 24 Hours: My Active Orders 04/21/18 10:54 UA W/MICROSCOPIC [URIN] Stat - Assessment/Plan Last 24 Hours: My Active Orders 04/21/18 10:54 UA W/MICROSCOPIC [URIN] Stat
[2018-04-21] MEDS ORDERED: Ondansetron 4 MG/2 ML SDV IVPUSH ONE (10:54)
[2018-04-21] MEDS ORDERED: Sodium Chloride 0.9% 1,000 ML IV ONE (10:54)
[2018-04-21] MEDS ORDERED: Ondansetron 4 MG Tab.DIS PO ONE (12:27)
[2018-04-21 13:03] VITALS: BP 120/78
== END 2018-04-21 12:48 | disposition home or self-care (01) ==
LOC: MW.ED 10:34
DX: O21.9 Vomiting of pregnancy, unspecified (principal); Z3A.01 Less than 8 weeks gestation of pregnancy; Z88.1 Allergy status to other antibiotic agents
CPT/HCPCS: 96361; 96374; 99284; A9270; J2405; J7040; 99283

== ENCOUNTER 2018-12-05 00:20 | Inpatient (IN) | payer MEDICAID ==
[2018-12-05] MEDS ORDERED: Lidocaine 1% 50 ML MDV INJECT PRN (00:37)
[2018-12-05] MEDS ORDERED: Sodium Chloride 0.9% 10 ML Syringe FLUSH PRN (00:37)
[2018-12-05] MEDS ORDERED: Methylergonovine 0.2 MG/1 ML Amp IM PRN (00:37)
[2018-12-05] MEDS ORDERED: Sodium Chloride 0.9% 10 ML SDV IV PRN (00:37)
[2018-12-05] MEDS ORDERED: Butorphanol 1 MG/ML SDV IVPUSH PRN (00:37)
[2018-12-05] MEDS ORDERED: Water For Irrigation,Sterile 1,000 ML Container IRR PRN (00:37)
[2018-12-05] MEDS ORDERED: Carboprost Tromethamine 250 MCG/1 ML Amp IM PRN (00:37)
[2018-12-05] MEDS ORDERED: Sodium Chloride 0.9% 2.5 ML Syringe FLUSH PRN (00:37)
[2018-12-05] MEDS ORDERED: Nalbuphine 10 MG/1 ML Vial IVPUSH PRN (00:37)
[2018-12-05] MEDS ORDERED: Misoprostol 200 MCG Tab PO PRN (00:37)
[2018-12-05] MEDS ORDERED: Tranexamic Acid 1,000 MG in Sodium Chloride 0.9% 100 ML IV PRN (00:37)
[2018-12-05] MEDS ORDERED: Misoprostol 25 MCG (1/4 of 100 MCG) Tab VAG PRN ×2 (00:41)
[2018-12-05] MEDS ORDERED: Terbutaline 1 MG/ML SDV SUBCUT PRN (00:41)
[2018-12-05] MEDS ORDERED: Misoprostol 25 MCG (1/4 of 100 MCG) Tab PO ONE ×3 (00:45→05:35)
[2018-12-05] MEDS ORDERED: Lactated Ringers 1,000 ML IV SCH (00:45)
[2018-12-05] MEDS ORDERED: Oxytocin/0.9 % Sodium Chloride 30 UNIT/500 ML BAG IV SCH ×2 (00:45)
--- NOTE | 2018-12-05 09:26 | PCM.LDHP ---
L&D History of Present Illness - General Date of Service: 12/05/18 Admit Problem/Dx: Patient Status Order with Admit Dx/Problem 12/05/18 00:37 Patient Status [ADT] Routine Admission Diagnosis/Problem Admission Diagnosis/Problem 12/05/18 09:21 27yo 39 3/7wks O+, R-non-Imm, GBS neg. IOL term Source of Information: Patient History Limitations: Reports: No Limitations - History of Present Illness Improves with: Reports: None Worsens with: Reports: None Associated Symptoms: Reports: N - Related Data Allergies/Adverse Reactions: Allergies Allergy/AdvReac Type Severity Reaction Status Date / Time cephalexin monohydrate Allergy Rash Verified 03/05/18 18:10 [From Keflex] Home Medications: Home Meds Ondansetron HCl [Ondansetron] 4 mg PRN 04/21/18 [History] Ondansetron [Zofran ODT] 4 mg PO Q6H PRN #15 tab.dis 04/21/18 [Rx] Past Medical History - Past Health History Medical/Surgical History: Denies Medical/Surgical History Cardiovascular History: Reports: None Respiratory History: Reports: None Gastrointestinal History: Reports: None Genitourinary History: Reports: None 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: Musculoskeletal History: Reports: None Neurological History: Reports: None Psychiatric History: Reports: None Endocrine/Metabolic History: Reports: None Hematologic History: Reports: None Immunologic History: Reports: None Oncologic (Cancer) History: Reports: None Dermatologic History: Reports: None - Infectious Disease History Infectious Disease History: Reports: None - Past Surgical History Head Surgeries/Procedures: Reports: None Female Surgical History: Reports: None Social & Family History - Family History Family Medical History: Noncontributory OBGYN: Reports: - Tobacco Use Smoking Status *Q: Never Smoker Second Hand Smoke Exposure: No - Caffeine Use Caffeine Use: Reports: Soda - Recreational Drug Use Recreational Drug Use: No H&P Review of Systems - Review of Systems: Review Of Systems: See Below General: Reports: No Symptoms HEENT: Reports: No Symptoms Pulmonary: Reports: No Symptoms Cardiovascular: Reports: No Symptoms Gastrointestinal: Reports: No Symptoms Genitourinary: Reports: No Symptoms Musculoskeletal: Reports: No Symptoms Skin: Reports: No Symptoms Psychiatric: Reports: No Symptoms Neurological: Reports: No Symptoms Hematologic/Lymphatic: Reports: No Symptoms Immunologic: Reports: No Symptoms L&D Exam - Exam Exam: See Below - Vital Signs Weight: 64.41 kg - OB Specific Contraction Intensity: Moderate to Strong Movement: Active Heart Tones: Present Heart Tones per Min: 140 Heart Rate (FHR) Variability: Minimal (0-5 bpm) Presentation: Vertex - Hall Score Hall Score Cervix Position: Posterior Hall Score Consistency: Soft Hall Score Effacement: 51-70% Hall Score Dilation: > 5 cm Hall Score 's Station: -2 Hall Score Total: 8 - Exam General: Alert, Oriented, Cooperative HEENT: Hearing Intact Lungs: Clear to Auscultation, Normal Respiratory Effort. No: Decreased Breath Sounds Cardiovascular: Regular Rate, Regular Rhythm, Normal S1, Normal S2. No: Irregular Rhythm GI/Abdominal Exam: Soft, Non-Tender Back Exam: Normal Inspection, Full Range of Motion Extremities: Normal Inspection, Normal Range of Motion, Non-Tender, No Pedal Edema Skin: Warm, Dry, Intact Neurological: Reflexes Equal Bilateral, Normal Gait, Normal Speech, Normal Tone Psychiatric: Alert, Normal Affect, Normal Mood - Patient Data Lab Results Last 24 hrs: Laboratory Results - last 24 hr 12/05/18 12/05/18 Range/Units 01:14 01:14 WBC 11.30 H (4.0-11.0) K/uL RBC 3.73 L (4.30-5.90) M/uL Hgb 11.2 L (12.0-16.0) g/dL Hct 33.0 L (36.0-46.0) % MCV 88.5 (80.0-98.0) fL MCH 30.0 (27.0-32.0) pg MCHC 33.9 (31.0-37.0) g/dL RDW Std Deviation 40.7 (28.0-62.0) fl RDW Coeff of Avis 13 (11.0-15.0) % Plt Count 193 (150-400) K/uL MPV 10.60 (7.40-12.00) fL Blood Type O POSITIVE Antibody Screen NEGATIVE Result Diagrams: 12/05/18 01:14 - Problem List (1) Supervision of normal IUP (intrauterine ) in multigravida SNOMED Code(s): 408923671, 355624379, 154581910 ICD Code: Z34.80 - ENCOUNTER FOR SUPRVSN OF NORMAL , UNSP TRIMESTER Status: Acute Current Visit: Yes Qualifiers: Trimester: third trimester Qualified Code(s): Z34.83 - Encounter for supervision of other normal , third trimester Problem List Initiated/Reviewed/Updated: Yes Orders Last 24hrs: Active Orders 24 hr Category Date Time Status Patient Status [ADT] Routine ADT 12/05/18 00:37 Active Bedrest Bathroom Privileges [RC] ASDIRECTED Care 12/05/18 00:41 Active Communication Order [RC] ASDIRECTED Care 12/05/18 00:41 Active Communication Order [RC] ASDIRECTED Care 12/05/18 00:41 Active Communication Order [RC] ASDIRECTED Care 12/05/18 00:41 Active Heart Tones [RC] CONTINUOUS Care 12/05/18 00:37 Active Non Stress Test [RC] PER UNIT ROUTINE Care 12/05/18 00:37 Active May Shower [RC] ASDIRECTED Care 12/05/18 00:37 Active Notify Provider [RC] PRN Care 12/05/18 00:37 Active Notify Provider [RC] PRN Care 12/05/18 00:41 Active Notify Provider [RC] PRN Care 12/05/18 00:41 Active Notify Provider [RC] STAT Care 12/05/18 00:41 Active Up ad Sirena [RC] ASDIRECTED Care 12/05/18 00:37 Active Vaginal Exam [RC] PRN Care 12/05/18 00:37 Active Vaginal Exam [RC] PRN Care 12/05/18 00:41 Active Vital Signs [RC] PER UNIT ROUTINE Care 12/05/18 00:37 Active Vital Signs [RC] PER UNIT ROUTINE Care 12/05/18 00:41 Active Regular Diet [DIET] Diet 12/05/18 Breakfast Active Butorphanol [Stadol] Med 12/05/18 00:37 Active 1 mg IVPUSH Q1H PRN Carboprost Tromethamine [Hemabate DS] Med 12/05/18 00:37 Active 250 mcg IM ASDIRECTED PRN Lactated Ringers [Ringers, Lactated] 1,000 ml Med 12/05/18 00:45 Active IV ASDIRECTED Lidocaine 1% [Xylocaine 1%] Med 12/05/18 00:37 Active 50 ml INJECT ONETIME PRN Methylergonovine [Methergine] Med 12/05/18 00:37 Active 0.2 mg IM ASDIRECTED PRN Nalbuphine [Nubain] Med 12/05/18 00:37 Active 10 mg IVPUSH Q1H PRN Oxytocin/0.9 % Sodium Chloride [Oxytocin 30 Unit/500 ML Med 12/05/18 00:45 Active -NS] 30 unit in 500 ml IV TITRATE Oxytocin/0.9 % Sodium Chloride [Oxytocin 30 Unit/500 ML Med 12/05/18 00:45 Active -NS] 30 unit in 500 ml IV TITRATE Sodium Chloride 0.9% [Normal Saline] Med 12/05/18 00:37 Active 10 ml IV ASDIRECTED PRN Sodium Chloride 0.9% [Saline Flush] Med 12/05/18 00:37 Active 10 ml FLUSH ASDIRECTED PRN Sodium Chloride 0.9% [Saline Flush] Med 12/05/18 00:37 Active 2.5 ml FLUSH ASDIRECTED PRN Terbutaline [Brethine] Med 12/05/18 00:41 Active 0.25 mg SUBCUT ASDIRECTED PRN Tranexamic Acid [Cyklokapron] 1,000 mg Med 12/05/18 00:37 Active Sodium Chloride 0.9% [Normal Saline] 100 ml IV ONETIME Water For Irrigation,Sterile [Sterile Water for Med 12/05/18 00:37 Active Irrigation] 1,000 ml IRR ASDIRECTED PRN miSOPROStol [Cytotec] Med 12/05/18 00:37 Active 200 mcg PO ONETIME PRN miSOPROStol [Cytotec] Med 12/05/18 00:41 Active 25 mcg VAG ONETIME PRN miSOPROStol [Cytotec] Med 12/05/18 00:41 Active 25 mcg VAG Q4H PRN Scalp Electrode [WOMSER] Per Unit Routine Oth 12/05/18 00:37 Ordered Medication Administration Instruction [OM.PC] Q3H Oth 12/05/18 00:45 Ordered Peripheral IV Insertion Adult [OM.PC] Routine Oth 12/05/18 00:37 Ordered Resuscitation Status Routine Resus Stat 12/05/18 00:37 Ordered Medication Orders Butorphanol Tartrate (Stadol) 1 mg IVPUSH Q1H PRN PRN Reason: Pain Carboprost Tromethamine (Hemabate Ds) 250 mcg IM ASDIRECTED PRN PRN Reason: Post Hemorrhage Lactated Ringer's (Ringers, Lactated) 1,000 mls @ 150 mls/hr IV ASDIRECTED MARCIANO Last Admin: 12/05/18 08:47 Dose: 999 mls/hr Oxytocin/Sodium Chloride (Oxytocin 30 Unit/500 Ml-Ns) 30 unit in 500 mls @ 500 mls/hr IV TITRATE [facility] Tranexamic Acid 1,000 mg/ (Sodium Chloride) 110 mls @ 660 mls/hr IV ONETIME PRN PRN Reason: Bleeding Oxytocin/Sodium Chloride (Oxytocin 30 Unit/500 Ml-Ns) 30 unit in 500 mls @ 2 mls/hr IV TITRATE [facility]; Protocol Lidocaine HCl (Xylocaine 1%) 50 ml INJECT ONETIME PRN PRN Reason: Laceration repair Methylergonovine Maleate (Methergine) 0.2 mg IM ASDIRECTED PRN PRN Reason: Post Hemorrhage Misoprostol (Cytotec) 200 mcg PO ONETIME PRN PRN Reason: Post Hemorrhage Misoprostol (Cytotec) 25 mcg VAG ONETIME PRN PRN Reason: Cervical Ripening Last Admin: 12/05/18 06:15 Dose: 25 mcg Misoprostol (Cytotec) 25 mcg VAG Q4H PRN PRN Reason: Cervical Ripening Last Admin: 12/05/18 01:37 Dose: 25 mcg Nalbuphine HCl (Nubain) 10 mg IVPUSH Q1H PRN PRN Reason: Pain (severe 7-10) Sodium Chloride (Saline Flush) 10 ml FLUSH ASDIRECTED PRN PRN Reason: Keep Vein Open Sodium Chloride (Saline Flush) 2.5 ml FLUSH ASDIRECTED PRN PRN Reason: Keep Vein Open Sodium Chloride (Normal Saline) 10 ml IV ASDIRECTED PRN PRN Reason: IV Use Sterile Water (Sterile Water For Irrigation) 1,000 ml IRR ASDIRECTED PRN PRN Reason: delivery Terbutaline Sulfate (Brethine) 0.25 mg SUBCUT ASDIRECTED PRN PRN Reason: Tacysystole Assessment/Plan Comment:: IOL A: 27yo 39 3/7wks O+, R-non-Imm, GBS neg. IOL term P: Admit, cytotec, epidural, anticipate , Dr lopez updated
[2018-12-05] MEDS ORDERED: Ropivacaine HCl/PF 0 ML ONE (09:40)
[2018-12-05] MEDS ORDERED: Ropivacaine 0.2% 2 MG/ML 20 ML SDV ONE (09:40)
[2018-12-05] MEDS ORDERED: fentaNYL 100 MCG/2 ML SDV ONE (09:40)
--- NOTE | 2018-12-05 10:21 | PCM.DEL ---
L & D Note - General Info Date of Service: 12/05/18 Mother's Due Date: 12/09/18 - Delivery Note Cervical Ripening Method: Misoprostil Delivery Outcome: Livebirth Delivery Method: Spontaneous Vaginal Delivery-Single Delivery Mode: Spontaneous Presentation: Vertex Nuchal Cord: None Anesthesia Type: None Amniotic Fluid Description: Meconium Stained (light) Episiotomy Type: None Laceration: None Placenta: Intact, Spontaneous Cord: 3 Vessels Estimated Blood Loss: 100 Resuscitation Needed: No [place]: Stimulated Score 1 min: 9 Score 5 min: 9 Second Stage Interventions: Reports: Pushing, Knee Chest Position Delivery Comments (Free Text/Narrative):: of viable female, mother assisted to hand/knee due to OP presentation, 2 contractions and baby head delivered, nuchal x1 reduced over head, shoulder and body followed easily. Infant spont cry given to mother to hold as we assisted her back onto her back. RN at for evaluation. Delayed cord clamping, pitocin to IVF. Cord clamped and cut by FOB. Cord blood collected. Placenta delivered grossly intact. Inspection noted intact perineum. EBL 100cc, APGARS 9/9, Wt: 7lb 6oz. Mother and baby left in stable condition for recovery. Induction Criteria - Hall Score Hall Score Dilation: 3-4 cm Hall Score Effacement: 40-50% Hall Score Infant's Station: -2 Hall Score Consistency: Soft Hall Score Cervix Position: Posterior Hall Score Total: 6 Hall Score Presenting Part: Reports: Cephalic - Induction Gestational Age >/= 39 wks: Yes Estimated Pelvis: Reports: Adequate Reassuring Monitoring Strip: Yes Absence of Tachy Systole: Yes - General Info Date of Service: 12/05/18 Admission Dx/Problem (Free Text): Patient Status Order with Admit Dx/Problem 12/05/18 00:37 Patient Status [ADT] Routine Admission Diagnosis/Problem Admission Diagnosis/Problem 12/05/18 09:21 27yo 39 3/7wks O+, R-non-Imm, GBS neg. IOL term Functional Status: Reports: Pain Controlled - Review of Systems General: Reports: No Symptoms HEENT: Reports: No Symptoms Pulmonary: Reports: No Symptoms Cardiovascular: Reports: No Symptoms Gastrointestinal: Reports: No Symptoms Genitourinary: Reports: No Symptoms Musculoskeletal: Reports: No Symptoms Skin: Reports: No Symptoms Neurological: Reports: No Symptoms Psychiatric: Reports: No Symptoms - Patient Data Weight - Most Recent: 64.41 kg Lab Results Last 24 Hours: Laboratory Results - last 24 hr 12/05/18 12/05/18 Range/Units 01:14 01:14 WBC 11.30 H (4.0-11.0) K/uL RBC 3.73 L (4.30-5.90) M/uL Hgb 11.2 L (12.0-16.0) g/dL Hct 33.0 L (36.0-46.0) % MCV 88.5 (80.0-98.0) fL MCH 30.0 (27.0-32.0) pg MCHC 33.9 (31.0-37.0) g/dL RDW Std Deviation 40.7 (28.0-62.0) fl RDW Coeff of Avis 13 (11.0-15.0) % Plt Count 193 (150-400) K/uL MPV 10.60 (7.40-12.00) fL Blood Type O POSITIVE Antibody Screen NEGATIVE Med Orders - Current: Current Medications Butorphanol Tartrate (Stadol) 1 mg IVPUSH Q1H PRN PRN Reason: Pain Carboprost Tromethamine (Hemabate Ds) 250 mcg IM ASDIRECTED PRN PRN Reason: Post Hemorrhage Lactated Ringer's (Ringers, Lactated) 1,000 mls @ 150 mls/hr IV ASDIRECTED MARCIANO Last Admin: 12/05/18 08:47 Dose: 999 mls/hr Oxytocin/Sodium Chloride (Oxytocin 30 Unit/500 Ml-Ns) 30 unit in 500 mls @ 500 mls/hr IV TITRATE MARCIANO Tranexamic Acid 1,000 mg/ (Sodium Chloride) 110 mls @ 660 mls/hr IV ONETIME PRN PRN Reason: Bleeding Oxytocin/Sodium Chloride (Oxytocin 30 Unit/500 Ml-Ns) 30 unit in 500 mls @ 2 mls/hr IV TITRATE [facility]; Protocol Lidocaine HCl (Xylocaine 1%) 50 ml INJECT ONETIME PRN PRN Reason: Laceration repair Methylergonovine Maleate (Methergine) 0.2 mg IM ASDIRECTED PRN PRN Reason: Post Hemorrhage Misoprostol (Cytotec) 200 mcg PO ONETIME PRN PRN Reason: Post Hemorrhage Misoprostol (Cytotec) 25 mcg VAG ONETIME PRN PRN Reason: Cervical Ripening Last Admin: 12/05/18 06:15 Dose: 25 mcg Misoprostol (Cytotec) 25 mcg VAG Q4H PRN PRN Reason: Cervical Ripening Last Admin: 12/05/18 01:37 Dose: 25 mcg Nalbuphine HCl (Nubain) 10 mg IVPUSH Q1H PRN PRN Reason: Pain (severe 7-10) Sodium Chloride (Saline Flush) 10 ml FLUSH ASDIRECTED PRN PRN Reason: Keep Vein Open Sodium Chloride (Saline Flush) 2.5 ml FLUSH ASDIRECTED PRN PRN Reason: Keep Vein Open Sodium Chloride (Normal Saline) 10 ml IV ASDIRECTED PRN PRN Reason: IV Use Sterile Water (Sterile Water For Irrigation) 1,000 ml IRR ASDIRECTED PRN PRN Reason: delivery Terbutaline Sulfate (Brethine) 0.25 mg SUBCUT ASDIRECTED PRN PRN Reason: Tacysystole Discontinued Medications Fentanyl (Sublimaze) Confirm Administered Dose 300 mcg .ROUTE .STK-MED ONE Stop: 12/05/18 09:41 Ropivacaine (Naropin 0.2%) Confirm Administered Dose 100 mls @ as directed .ROUTE .STK-MED ONE Stop: 12/05/18 09:41 Misoprostol (Cytotec) 25 mcg PO ONETIME ONE Stop: 12/05/18 00:46 Last Admin: 12/05/18 06:15 Dose: 25 mcg Misoprostol (Cytotec) 25 mcg PO ONETIME ONE Stop: 12/05/18 01:44 Last Admin: 12/05/18 01:32 Dose: 25 mcg Misoprostol (Cytotec) 25 mcg PO ONETIME ONE Stop: 12/05/18 05:36 Last Admin: 12/05/18 01:37 Dose: 25 mcg Ropivacaine (Naropin 0.2%) Confirm Administered Dose 20 ml .ROUTE .STK-MED ONE Stop: 12/05/18 09:41 - Exam General: Alert, Oriented Lungs: Normal Respiratory Effort GI/Abdominal Exam: Soft (Female) Exam: Normal External Exam, Normal Bimanual Exam, Vaginal Bleeding. No: Vaginal Lesions, Vaginal Tears Back Exam: Normal Inspection, Full Range of Motion Extremities: Normal Inspection, Normal Range of Motion, Non-Tender, No Pedal Edema Skin: Warm, Dry, Intact Neurological: No New Focal Deficit, Normal Speech, Normal Tone, Strength Equal Bilateral Psy/Mental Status: Alert, Normal Affect, Normal Mood - Problem List & Annotations (1) Supervision of normal IUP (intrauterine ) in multigravida SNOMED Code(s): 078155536, 397931228, 189645057 Code(s): Z34.80 - ENCOUNTER FOR SUPRVSN OF NORMAL , UNSP TRIMESTER Status: Acute Current Visit: Yes Qualifiers: Trimester: third trimester Qualified Code(s): Z34.83 - Encounter for supervision of other normal , third trimester (2) (normal spontaneous vaginal delivery) SNOMED Code(s): 01774507, 381865166 Code(s): O80 - ENCOUNTER FOR FULL-TERM UNCOMPLICATED DELIVERY Status: Acute Priority: High Current Visit: No - Problem List Review Problem List Initiated/Reviewed/Updated: Yes - My Orders Last 24 Hours: My Active Orders 12/05/18 00:37 Patient Status [ADT] Routine Heart Tones [RC] CONTINUOUS Non Stress Test [RC] PER UNIT ROUTINE May Shower [RC] ASDIRECTED Notify Provider [RC] PRN Up ad Sirena [RC] ASDIRECTED Vaginal Exam [RC] PRN Vital Signs [RC] PER UNIT ROUTINE Butorphanol [Stadol] 1 mg IVPUSH Q1H PRN Carboprost Tromethamine [Hemabate DS] 250 mcg IM ASDIRECTED PRN Lidocaine 1% [Xylocaine 1%] 50 ml INJECT ONETIME PRN Methylergonovine [Methergine] 0.2 mg IM ASDIRECTED PRN Nalbuphine [Nubain] 10 mg IVPUSH Q1H PRN Sodium Chloride 0.9% [Normal Saline] 10 ml IV ASDIRECTED PRN Sodium Chloride 0.9% [Saline Flush] 10 ml FLUSH ASDIRECTED PRN Sodium Chloride 0.9% [Saline Flush] 2.5 ml FLUSH ASDIRECTED PRN Tranexamic Acid [Cyklokapron] 1,000 mg Sodium Chloride 0.9% [Normal Saline] 100 ml IV ONETIME Water For Irrigation,Sterile [Sterile Water for Irrigation] 1,000 ml IRR ASDIRECTED PRN miSOPROStol [Cytotec] 200 mcg PO ONETIME PRN Scalp Electrode [WOMSER] Per Unit Routine Peripheral IV Insertion Adult [OM.PC] Routine Resuscitation Status Routine 12/05/18 00:41 Bedrest Bathroom Privileges [RC] ASDIRECTED Communication Order [RC] ASDIRECTED Communication Order [RC] ASDIRECTED Communication Order [RC] ASDIRECTED Notify Provider [RC] PRN Notify Provider [RC] PRN Notify Provider [RC] STAT Vaginal Exam [RC] PRN Vital Signs [RC] PER UNIT ROUTINE Terbutaline [Brethine] 0.25 mg SUBCUT ASDIRECTED PRN miSOPROStol [Cytotec] 25 mcg VAG ONETIME PRN miSOPROStol [Cytotec] 25 mcg VAG Q4H PRN 12/05/18 00:45 Lactated Ringers [Ringers, Lactated] 1,000 ml IV ASDIRECTED Oxytocin/0.9 % Sodium Chloride [Oxytocin 30 Unit/500 ML-NS] 30 unit in 500 ml IV TITRATE Oxytocin/0.9 % Sodium Chloride [Oxytocin 30 Unit/500 ML-NS] 30 unit in 500 ml IV TITRATE Medication Administration Instruction [OM.PC] Q3H 12/05/18 Breakfast Regular Diet [DIET] - Plan Plan:: IOL A: 27yo 39 3/7wks O+, R-non-Imm, GBS neg. IOL term P: Admit, cytotec, epidural, anticipate , Dr lopez updated Delivery A: of viable female, APGARS 9/9, Wt: 7lb 6oz. Intact, EBL 100cc, mother and baby stable P: Routine pp plan of care
[2018-12-05] MEDS ORDERED: Lanolin 100% Cream 7 GM Tube TOP PRN (10:25)
[2018-12-05] MEDS ORDERED: oxyCODONE 5 MG Tab PO PRN (10:25)
[2018-12-05] MEDS ORDERED: Bisacodyl 10 MG Supp RECTAL PRN (10:25)
[2018-12-05] MEDS ORDERED: Benzocaine/Menthol 20%-0.5% Spray 78 GM Cannister TOP PRN (10:25)
[2018-12-05] MEDS ORDERED: Ibuprofen 400 MG Tab PO PRN (10:25)
[2018-12-05] MEDS ORDERED: Docusate Sodium 100 MG Cap PO PRN (10:25)
[2018-12-05] MEDS ORDERED: Acetaminophen 500 MG Tab PO PRN ×2 (10:25)
[2018-12-05] MEDS ORDERED: Witch Hazel Medicated Pads 40/Jar TOP PRN (10:25)
[2018-12-05] MEDS: Ibuprofen 800 MG Tab PO PRN ×2 (11:25→19:52)
[2018-12-06 07:47] VITALS: BP 107/63
--- NOTE | 2018-12-06 08:24 | PCM.DCSUM1 ---
Discharge Summary - Hospital Course Free Text/Narrative:: Discharge home with . Follow up in 6 weeks for . Diagnosis: Stroke: No - Discharge Data Discharge Date: 12/06/18 Discharge Disposition: Home, Self-Care 01 Condition: Good - Discharge Diagnosis/Problem(s) (1) Supervision of normal IUP (intrauterine ) in multigravida SNOMED Code(s): 435362637, 773486363, 629313189 ICD Code: Z34.80 - ENCOUNTER FOR SUPRVSN OF NORMAL , UNSP TRIMESTER Status: Acute Current Visit: Yes Qualifiers: Trimester: third trimester Qualified Code(s): Z34.83 - Encounter for supervision of other normal , third trimester (2) (normal spontaneous vaginal delivery) SNOMED Code(s): 80634189, 718375410 ICD Code: O80 - ENCOUNTER FOR FULL-TERM UNCOMPLICATED DELIVERY Status: Acute Priority: High Current Visit: No - Patient Instructions Diet: Usual Diet as Tolerated Activity: As Tolerated, No Strenuous Activities, Rest and Relax Today Driving: May Drive Today Showering/Bathing: May Shower Notify Provider of: Fever, Increased Pain, Swelling and Redness, Nausea and/or Vomiting Other/Special Instructions: Discharge home with infant. Follow up in 6 weeks for . - Discharge Plan *PRESCRIPTION DRUG MONITORING PROGRAM REVIEWED*: Not Applicable *COPY OF PRESCRIPTION DRUG MONITORING REPORT IN PATIENT CLEMENCIA: Not Applicable Prescriptions/Med Rec: Ibuprofen [Motrin] 800 mg PO Q6H PRN #90 tablet PRN Reason: Pain Home Medications: Home Meds Ondansetron HCl [Ondansetron] 4 mg PRN 04/21/18 [History] Ondansetron [Zofran ODT] 4 mg PO Q6H PRN #15 tab.dis 04/21/18 [Rx] Ibuprofen [Motrin] 800 mg PO Q6H PRN #90 tablet 12/06/18 [Rx] Oxygen Therapy Mode: Room Air Referrals: Gurpreet Lopez [Ordering Only Provider] - Pau Li CNM [Mid-] - 01/17/19 1:30 pm - Discharge Summary/Plan Comment DC Time >30 min.: Yes - General Info Date of Service: 12/06/18 Admission Dx/Problem (Free Text: Patient Status Order with Admit Dx/Problem 12/05/18 00:37 Patient Status [ADT] Routine Admission Diagnosis/Problem Admission Diagnosis/Problem 12/05/18 09:21 27yo 39 3/7wks O+, R-non-Imm, GBS neg. IOL term Functional Status: Reports: Pain Controlled, Tolerating Diet, Ambulating, Urinating - Review of Systems General: Reports: No Symptoms HEENT: Reports: No Symptoms Pulmonary: Reports: No Symptoms Cardiovascular: Reports: No Symptoms Gastrointestinal: Reports: No Symptoms Genitourinary: Reports: No Symptoms Musculoskeletal: Reports: No Symptoms Skin: Reports: No Symptoms Neurological: Reports: No Symptoms Psychiatric: Reports: No Symptoms - Patient Data Vitals - Most Recent: Last Vital Signs Temp 36.3 C 12/06/18 07:35 Pulse 84 12/06/18 07:35 Resp 18 12/06/18 07:35 BP 107/63 12/06/18 07:35 Pulse Ox 97 12/06/18 07:35 Weight - Most Recent: 64.41 kg Med Orders - Current: Current Medications Acetaminophen (Tylenol Extra Strength) 500 mg PO Q4H PRN PRN Reason: Pain Acetaminophen (Tylenol Extra Strength) 1,000 mg PO Q4H PRN PRN Reason: Pain Benzocaine/Menthol (Dermoplast Pain Relief 20%-0.5% [place]) 78 gm TOP ASDIRECTED PRN PRN Reason: Perineal Comfort Measure Last Admin: 12/05/18 11:26 Dose: 1 can Bisacodyl (Dulcolax) 10 mg RECTAL ONETIME PRN PRN Reason: Constipation Docusate Sodium (Colace) 100 mg PO BID PRN PRN Reason: Constipation Last Admin: 12/05/18 19:52 Dose: 100 mg Emollient Ointment (Lansinoh Hpa) 0 gm TOP ASDIRECTED PRN PRN Reason: Sore Nipples Ibuprofen (Motrin) 400 mg PO Q4H PRN PRN Reason: Pain Ibuprofen (Motrin) 800 mg PO Q6H PRN PRN Reason: Pain Last Admin: 12/05/18 19:52 Dose: 800 mg Oxycodone HCl (Oxycodone) 5 mg PO Q2H PRN PRN Reason: Pain Witch Raisa (Tucks) 1 pad TOP ASDIRECTED PRN PRN Reason: comfort care Last Admin: 12/05/18 11:25 Dose: 1 tub Discontinued Medications Butorphanol Tartrate (Stadol) 1 mg IVPUSH Q1H PRN PRN Reason: Pain Carboprost Tromethamine (Hemabate Ds) 250 mcg IM ASDIRECTED PRN PRN Reason: Post Hemorrhage Fentanyl (Sublimaze) Confirm Administered Dose 300 mcg .ROUTE .STK-MED ONE Stop: 12/05/18 09:41 Lactated Ringer's (Ringers, Lactated) 1,000 mls @ 150 mls/hr IV ASDIRECTED MARCIANO Last Admin: 12/05/18 08:47 Dose: 999 mls/hr Oxytocin/Sodium Chloride (Oxytocin 30 Unit/500 Ml-Ns) 30 unit in 500 mls @ 500 mls/hr IV TITRATE MAR[facility]O Tranexamic Acid 1,000 mg/ (Sodium Chloride) 110 mls @ 660 mls/hr IV ONETIME PRN PRN Reason: Bleeding Oxytocin/Sodium Chloride (Oxytocin 30 Unit/500 Ml-Ns) 30 unit in 500 mls @ 2 mls/hr IV TITRATE [facility]; Protocol Ropivacaine (Naropin 0.2%) Confirm Administered Dose 0 mls @ as directed .ROUTE .[facility]-MED ONE Stop: 12/05/18 09:41 Lidocaine HCl (Xylocaine 1%) 50 ml INJECT ONETIME PRN PRN Reason: Laceration repair Methylergonovine Maleate (Methergine) 0.2 mg IM ASDIRECTED PRN PRN Reason: Post Hemorrhage Misoprostol (Cytotec) 200 mcg PO ONETIME PRN PRN Reason: Post Hemorrhage Misoprostol (Cytotec) 25 mcg VAG ONETIME PRN PRN Reason: Cervical Ripening Last Admin: 12/05/18 06:15 Dose: 25 mcg Misoprostol (Cytotec) 25 mcg VAG Q4H PRN PRN Reason: Cervical Ripening Last Admin: 12/05/18 01:37 Dose: 25 mcg Misoprostol (Cytotec) 25 mcg PO ONETIME ONE Stop: 12/05/18 00:46 Last Admin: 12/05/18 06:15 Dose: 25 mcg Misoprostol (Cytotec) 25 mcg PO ONETIME ONE Stop: 12/05/18 01:44 Last Admin: 12/05/18 01:32 Dose: 25 mcg Misoprostol (Cytotec) 25 mcg PO ONETIME ONE Stop: 12/05/18 05:36 Last Admin: 12/05/18 01:37 Dose: 25 mcg Nalbuphine HCl (Nubain) 10 mg IVPUSH Q1H PRN PRN Reason: Pain (severe 7-10) Ropivacaine (Naropin 0.2%) Confirm Administered Dose 20 ml .ROUTE .STK-MED ONE Stop: 12/05/18 09:41 Sodium Chloride (Saline Flush) 10 ml FLUSH ASDIRECTED PRN PRN Reason: Keep Vein Open Sodium Chloride (Saline Flush) 2.5 ml FLUSH ASDIRECTED PRN PRN Reason: Keep Vein Open Sodium Chloride (Normal Saline) 10 ml IV ASDIRECTED PRN PRN Reason: IV Use Sterile Water (Sterile Water For Irrigation) 1,000 ml IRR ASDIRECTED PRN PRN Reason: delivery Terbutaline Sulfate (Brethine) 0.25 mg SUBCUT ASDIRECTED PRN PRN Reason: Tacysystole - Exam General: Reports: Alert, Oriented, Cooperative, No Acute Distress Lungs: Reports: Normal Respiratory Effort GI/Abdominal Exam: Soft, Non-Tender (Female) Exam: Deferred, Vaginal Bleeding Rectal (Female) Exam: Deferred Back Exam: Reports: Full Range of Motion Extremities: Normal Range of Motion, Pedal Edema Skin: Reports: Warm, Dry, Intact Neurological: Reports: No New Focal Deficit, Normal Speech, Normal Tone, Strength Equal Bilateral Psy/Mental Status: Reports: Alert, Normal Affect, Normal Mood
== END 2018-12-06 14:10 | disposition home or self-care (01) | DRG 807 ==
LOC: MW.OBCHECK 00:20 → MW.OB 00:22 → OBSVTOIN 09:55 → MW.OB 09:55
PROVIDERS: ADMIT Obstetrics & Gynecology; ATTEND Obstetrics & Gynecology
PROC: 10E0XZZ Delivery of Products of Conception, External Approach (ICD-10-PCS; principal; 2018-12-05)
PROC: 3E0P7VZ Introduction of Hormone into Female Reproductive, Via Natural or Artificial Opening (ICD-10-PCS; 2018-12-05)
DX: O77.0 Labor and delivery complicated by meconium in amniotic fluid (principal); Z37.0 Single live birth; O69.81X0 Labor and delivery complicated by cord around neck, without compression, not applicable or unspecified; Z3A.39 39 weeks gestation of pregnancy
CPT/HCPCS: 36415; 59025; 59409; 85027; 86850; 86900; 86901; A9270-GY; J7120

== ENCOUNTER 2019-05-10 10:51 | Emergency (ER) | payer SELFPAY ==
[2019-05-10] MEDS ORDERED: Sodium Chloride 0.9% 1,000 ML IV ONE (11:14)
[2019-05-10] MEDS ORDERED: Ondansetron 4 MG/2 ML SDV IVPUSH ONE (11:18)
[2019-05-10] MEDS ORDERED: Aluminum Hydroxide/Magnesium Hydroxide/Simethicone Susp 30 ML Cup PO ONE (11:19)
--- NOTE | 2019-05-10 11:29 | EDM.PDOC ---
ED HPI GENERAL MEDICAL PROBLEM - General Chief Complaint: Gastrointestinal Problem Stated Complaint: SICK Time Seen by Provider: 05/10/19 10:55 Source of Information: Reports: Patient, EMS History Limitations: Reports: No Limitations - History of Present Illness INITIAL COMMENTS - FREE TEXT/NARRATIVE: HISTORY AND PHYSICAL: History of present illness: 28-year-old female at approximately 7 weeks gestation presents via EMS complaining of nausea and vomiting for the past week. She reports that her nausea and vomiting was initially occasional, however, for the past 3 days has been continuous. Patient reports losing count as to how many times she has vomited. She reports that this morning she noticed that her vomit was dark colored. She also reports having upper abdominal and chest pain that is described as being burning in nature. Patient has not taken anything over-the- counter for her nausea and vomiting. She does report smoking marijuana yesterday to see if it would improve her vomiting but did not help. Patient reports that she has a provider established for pre- care. She has not had an ultrasound during this current yet. She denies any vaginal bleeding or lower abdominal pain. Furthermore, patient also complains of numbness and tingling in her hands. Review of systems: As per history of present illness and below otherwise all systems reviewed and negative. Past medical history: As per history of present illness and as reviewed below otherwise noncontributory. Surgical history: As per history of present illness and as reviewed below otherwise noncontributory. Social history: No reported history of drug or alcohol abuse. Family history: As per history of present illness and as reviewed below otherwise noncontributory. Physical exam: HEENT: Atraumatic, normocephalic, pupils reactive, negative for conjunctival pallor or scleral icterus, mucous membranes moist, throat clear, neck supple, nontender, trachea midline. Lungs: Clear to auscultation bilaterally. Heart: Tachycardic, normal S1 and S2 Abdomen: Soft, mild tenderness to palpation in epigastric region, bowel sounds present. No flank tenderness. Pelvis: Deferred. Genitourinary: Deferred. Rectal: Deferred. Extremities: No lower extremity appreciated bilaterally. Neuro: Awake, alert, oriented. Cranial nerves II through XII unremarkable. Exam nonfocal. Diagnostics: CBC, CMP, lipase unremarkable Therapeutics: IV NS 1L, [place] PO, zofran 4mg IV x 1 Impression: 1. Hyperemesis gravidarum. Plan: 1. Script provided for zofran 4mg PO q8h prn x 4 days. Recommended following-up with OB provider within 1 week. Return to ER for persistent or worsening symptoms. Definitive disposition and diagnosis as appropriate pending reevaluation and review of above. - Related Data Allergies Allergy/AdvReac Type Severity Reaction Status Date / Time cephalexin monohydrate Allergy Rash Verified 05/10/19 11:06 [From Keflex] Home Meds: Home Meds Ondansetron [Zofran] 4 mg PO Q8H PRN 4 Days #12 tab 05/10/19 [Rx] Past Medical History - Past Health History Medical/Surgical History: Denies Medical/Surgical History Cardiovascular History: Reports: None Respiratory History: Reports: None Gastrointestinal History: Reports: None Genitourinary History: Reports: None [employer]ATOR History: Reports: Musculoskeletal History: Reports: None Neurological History: Reports: None Psychiatric History: Reports: None Endocrine/Metabolic History: Reports: None Hematologic History: Reports: None Immunologic History: Reports: None Oncologic (Cancer) History: Reports: None Dermatologic History: Reports: None - Infectious Disease History Infectious Disease History: Reports: Chicken Pox - Past Surgical History Head Surgeries/Procedures: Reports: None Female Surgical History: Reports: None Social & Family History - Family History Family Medical History: Noncontributory OBGYN: Reports: - Tobacco Use Smoking Status *Q: Never Smoker - Caffeine Use Caffeine Use: Reports: Soda - Recreational Drug Use Recreational Drug Use: No ED ROS GENERAL - Review of Systems Review Of Systems: ROS reveals no pertinent complaints other than HPI. ED EXAM - Physical Exam Exam: See Below Course - Vital Signs Last Recorded V/S: Last Vital Signs Temp 98.4 F 05/10/19 11:03 Pulse 89 05/10/19 12:06 Resp 16 05/10/19 12:06 BP 110/72 05/10/19 12:06 Pulse Ox 98 05/10/19 12:06 - Orders/Labs/Meds Labs: Laboratory Tests 05/10/19 05/10/19 Range/Units 11:00 11:00 WBC 12.94 H (4.0-11.0) K/uL RBC 5.38 (4.30-5.90) M/uL Hgb 15.9 (12.0-16.0) g/dL Hct 45.4 (36.0-46.0) % MCV 84.4 (80.0-98.0) fL MCH 29.6 (27.0-32.0) pg MCHC 35.0 (31.0-37.0) g/dL RDW Std Deviation 41.6 (28.0-62.0) fl RDW Coeff of Avis 14 (11.0-15.0) % Plt Count 279 (150-400) K/uL MPV 11.00 (7.40-12.00) fL Neut % (Auto) 78.9 (48.0-80.0) % Lymph % (Auto) 15.5 L (16.0-40.0) % [place] % (Auto) 5.3 (0.0-15.0) % Eos % (Auto) 0.1 (0.0-7.0) % Baso % (Auto) 0.2 (0.0-1.5) % Neut # (Auto) 10.2 H (1.4-5.7) K/uL Lymph # (Auto) 2.0 (0.6-2.4) K/uL [place] # (Auto) 0.7 (0.0-0.8) K/uL Eos # (Auto) 0.0 (0.0-0.7) K/uL Baso # (Auto) 0.0 (0.0-0.1) K/uL Nucleated RBC % 0.0 /100WBC Nucleated RBCs # 0 K/uL Sodium 135 L (136-145) mmol/L Potassium 3.6 (3.5-5.1) mmol/L Chloride 95 L (98-107) mmol/L Carbon Dioxide 18.9 L (21.0-32.0) mmol/L BUN 13 (7.0-18.0) mg/dL Creatinine 0.9 (0.6-1.0) mg/dL Est Cr Clr Drug Dosing TNP Estimated GFR (MDRD) > 60.0 ml/min Glucose 124 H (74-106) mg/dL Calcium 10.2 H (8.5-10.1) mg/dL Total Bilirubin 1.2 H (0.2-1.0) mg/dL AST 17 (15-37) IU/L ALT 17 (14-63) IU/L Alkaline Phosphatase 25 L (46-116) U/L Total Protein 8.6 H (6.4-8.2) g/dL Albumin 4.7 (3.4-5.0) g/dL Globulin 3.9 (2.6-4.0) g/dL Albumin/Globulin Ratio 1.2 (0.9-1.6) Lipase 210 (73-393) U/L Meds: Medications Discontinued Medications Generic Name Dose Route Start Last Admin Trade Name Freq PRN Reason Stop Dose Admin Al Hydroxide/Mg Hydroxide 30 ml 05/10/19 11:19 05/10/19 11:34 Mag-Al Plus PO 05/10/19 11:20 30 ml ONETIME ONE Administration Sodium Chloride 1,000 mls @ 999 mls/hr 05/10/19 11:14 05/10/19 11:16 Normal Saline IV 05/10/19 12:14 999 mls/hr .Bolus ONE Administration Ondansetron HCl 4 mg 05/10/19 11:18 05/10/19 11:31 Zofran IVPUSH 05/10/19 11:19 4 mg ONETIME ONE Administration - Re-Assessments/Exams Free Text/Narrative Re-Assessment/Exam: 05/10/19 12:16 Patient reports improvement in her nausea and numbness and tingling in hands after receiving anti-emetic and IV fluids. 05/10/19 12:19 Departure - Departure Time of Disposition: 12:17 Disposition: Home, Self-Care 01 Condition: Fair Clinical Impression: Hyperemesis gravidarum - Discharge Information *PRESCRIPTION DRUG MONITORING PROGRAM REVIEWED*: Not Applicable *COPY OF PRESCRIPTION DRUG MONITORING REPORT IN PATIENT CLEMENCIA: Not Applicable Prescriptions: Ondansetron [Zofran] 4 mg PO Q8H PRN 4 Days #12 tab PRN Reason: Nausea Instructions: Hyperemesis Gravidarum Referrals: PCP,None [Primary Care Provider] - Forms: ED Department Discharge Additional Instructions: The following information is given to patients seen in the emergency department who are being discharged to home. This information is to outline your options for follow-up care. We provide all patients seen in our emergency department with a follow-up referral. The need for follow-up, as well as the timing and circumstances, are variable depending upon the specifics of your emergency department visit. If you don't have a primary care physician on staff, we will provide you with a referral. We always advise you to contact your personal physician following an emergency department visit to inform them of the circumstance of the visit and for follow-up with them and/or the need for any referrals to a consulting specialist. The emergency department will also refer you to a specialist when appropriate. This referral assures that you have the opportunity for follow-up care with a specialist. All of these measure are taken in an effort to provide you with optimal care, which includes your follow-up. Under all circumstances we always encourage you to contact your private physician who remains a resource for coordinating your care. When calling for follow-up care, please make the office aware that this follow-up is from your recent emergency room visit. If for any reason you are refused follow-up, please contact the [facility] Emergency Department at and asked to speak to the emergency department charge nurse.
[2019-05-10 11:52] LABS: BLOOD UREA NITROGEN,BUN 13 mg/dL (7.0-18.0); CARBON DIOXIDE,CO2 18.9 mmol/L (21.0-32.0); CHLORIDE,CL 95 mmol/L (98-107); GLUCOSE RANDOM 124 mg/dL (74-106); LIPASE 210 U/L (73-393); POTASSIUM,K 3.6 mmol/L (3.5-5.1); SODIUM,NA 135 mmol/L (136-145)
[2019-05-10 12:08] VITALS: BP 110/72
[2019-05-10 12:36] VITALS: PULSE 90
== END 2019-05-10 12:36 | disposition home or self-care (01) ==
LOC: MW.ED 10:51
DX: O21.0 Mild hyperemesis gravidarum (principal); Z88.1 Allergy status to other antibiotic agents; Z3A.01 Less than 8 weeks gestation of pregnancy
CPT/HCPCS: 36415; 80053; 83690; 85025; 96361; 96374; 99283; A9270; J2405; J7040

== ENCOUNTER 2020-10-16 23:22 | Emergency (ER) | payer SELFPAY ==
[2020-10-16] MEDS ORDERED: Ondansetron 4 MG/2 ML SDV IVPUSH ONE (23:58)
[2020-10-16] MEDS ORDERED: Sodium Chloride 0.9% 2.5 ML Syringe FLUSH PRN (23:58)
[2020-10-16] MEDS ORDERED: Sodium Chloride 0.9% 10 ML Syringe FLUSH PRN (23:58)
[2020-10-16] MEDS ORDERED: Sodium Chloride 0.9% 1,000 ML IV ONE (23:58)
--- NOTE | 2020-10-17 00:32 | EDM.PDOC ---
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 Patient reports that her last menstrual period was the end of July and she believes that she is approximately 6 weeks . Patient reports that over the last several days she been having persistent emesis consistent with her prior pregnancies. Patient denies any recent fevers, shakes, chills, dysuria, frequency, urgency diarrhea, chest pain, shortness of breath, abdominal pain, va ginal bleeding, vaginal pain. Patient denies any history of ectopic pregnancies or STDs in the past. Patient reports in the past when she is had the symptoms she is required IV fluids and IV Zofran and reports that she responded extremely well to them. Review of systems: As per history of present illness and below otherwise all systems reviewed and negative. Past medical history: As per history of present illness and as reviewed below otherwise noncontributory. Surgical history: As per history of present illness and as reviewed below otherwise noncontributory. Social history: No reported history of drug or alcohol abuse. Family history: As per history of present illness and as reviewed below otherwise noncontributory. Physical exam: This patient was seen and evaluated during the 2019 SARS-CoV-2 novel coronavirus pandemic period. Community viral transmission is ongoing at time of this encounter and the emergency department is operating under pandemic response procedures. Constitutional: Patient is oriented to person, place, and time. Appears well- developed and well-nourished. No distress. HEENT: Moist mucous membranes Head: Normocephalic and atraumatic Eyes: Right eye exhibits no discharge. Left eye exhibits no discharge. No scleral icterus Neck: Normal range of motion. No tracheal deviation present. Cardiovascular: Normal rate and regular rhythm. Pulmonary: Effort normal, no respiratory distress. Abd: Soft, nondistended, no rebound/guarding, no psoas or obturator signs, no tenderness at Mcberney's point, no Carmichael's sign. Pt does not present with an exam that would be consistent with an acute surgical abdomen at this time, nontender to palpation. Musculoskeletal: Normal range of motion Neurologic: Alert and oriented to person, place and time. Skin: [place], warm and dry. Psychiatric: Normal mood and affect. Behavior is normal. Judgment and thought content normal. Nursing note and vital signs have been reviewed Assessment and plan: This is a 29-year-old female who presents ER today complaining of nausea and vomiting secondary to . Patient is approximately 6 weeks by date. Patient believes that her last menstrual period was approximately August 20. Patient is not having vaginal pain, vaginal bleeding, abdominal pain, suprapubic discomfort or any lateralizing abdominal pain. Patient reports that her vomiting is extremely typical to her prior episodes of pregnancies. Patient will have labs drawn here including a CBC, CMP, urinalysis, urine test, beta hCG. Patient be given NSS and Zofran and will be reevaluated. Patient will likely require prescription for Zofran prior to discharge. Patient's labs are all within normal limits. Patient reports that she feels much improved after the IV fluids and Zofran. Patient is requesting to be discharged home with a prescription for Zofran and a work note for 2 days. Patient will follow up with her primary care physician for further OB care. Patient will be returning to the ED if she has any abdominal discomfort. Reassessment at the time of disposition demonstrates that the patient is in no acute distress. The patient has remained stable throughout the entire ED visit and is without objective evidence for acute process requiring urgent intervention or hospitalization. The patient is stable for discharge, counseling is provided as documented above, discussed symptomatic treatment and specific conditions for return. I have spoken with the patient/caregiver and discussed todays findings, in addition to providing specific details for the plan of care. Questions are answered and there is agreement with the plan. Definitive disposition and diagnosis as appropriate pending reevaluation and review of above. 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: Musculoskeletal History: Reports: None Neurological History: Reports: None Psychiatric History: Reports: None Endocrine/Metabolic History: Reports: None Hematologic History: Reports: None Immunologic History: Reports: None Oncologic (Cancer) History: Reports: None Dermatologic History: Reports: None - Infectious Disease History Infectious Disease History: Reports: Chicken Pox - Past Surgical History Head Surgeries/Procedures: Reports: None Cardiovascular Surgical History: Reports: None GI Surgical History: Reports: None Female Surgical History: Reports: None Social & Family History - Family History Family Medical History: No Pertinent Family History OBGYN: Reports: - Tobacco Use Tobacco Use Status *Q: Never Tobacco User - Caffeine Use Caffeine Use: Reports: None - Recreational Drug Use Recreational Drug Use: Yes Recreational Drug Type: Reports: Marijuana/Hashish Recreational Drug Use Frequency: Rarely ED ROS GENERAL - Review of Systems Review Of Systems: See Below ED EXAM, GENERAL - Physical Exam Exam: See Below Course - Vital Signs Last Recorded V/S: Last Vital Signs Temp 96.9 F 10/17/20 02:15 Pulse 73 10/17/20 02:15 Resp 16 10/17/20 02:15 BP 117/68 10/17/20 02:15 Pulse Ox 97 10/17/20 02:15 - Orders/Labs/Meds Labs: Laboratory Tests 10/17/20 10/17/20 10/17/20 Range/Units 00:12 00:12 00:12 WBC 10.63 (4.0-11.0) K/uL RBC 5.21 (4.30-5.90) M/uL Hgb 16.3 H (12.0-16.0) g/dL Hct 46.1 H (36.0-46.0) % MCV 88.5 (80.0-98.0) fL MCH 31.3 (27.0-32.0) pg MCHC 35.4 (31.0-37.0) g/dL RDW Std Deviation 41.2 (28.0-62.0) fl RDW Coeff of Avis 13 (11.0-15.0) % Plt Count 223 (150-400) K/uL MPV 11.10 (7.40-12.00) fL Neut % (Auto) 74.7 (48.0-80.0) % Lymph % (Auto) 17.4 (16.0-40.0) % [place] % (Auto) 7.2 (0.0-15.0) % Eos % (Auto) 0.4 (0.0-7.0) % Baso % (Auto) 0.3 (0.0-1.5) % Neut # (Auto) 7.9 H (1.4-5.7) K/uL Lymph # (Auto) 1.9 (0.6-2.4) K/uL [place] # (Auto) 0.8 (0.0-0.8) K/uL Eos # (Auto) 0.0 (0.0-0.7) K/uL Baso # (Auto) 0.0 (0.0-0.1) K/uL Nucleated RBC % 0.0 /100WBC Nucleated RBCs # 0 K/uL Sodium 134 L (136-145) mmol/L Potassium 3.2 L (3.5-5.1) mmol/L Chloride 97 L (98-107) mmol/L Carbon Dioxide 26.9 (21.0-32.0) mmol/L BUN 12 (7.0-18.0) mg/dL Creatinine 0.8 (0.6-1.0) mg/dL Est Cr Clr Drug Dosing 86.60 mL/min Estimated GFR (MDRD) > 60.0 ml/min Glucose 105 (74-106) mg/dL Calcium 9.6 (8.5-10.1) mg/dL Total Bilirubin 1.2 H (0.2-1.0) mg/dL AST 15 (15-37) IU/L ALT 24 (14-63) IU/L Alkaline Phosphatase 26 L (46-116) U/L Total Protein 8.3 H (6.4-8.2) g/dL Albumin 4.5 (3.4-5.0) g/dL Globulin 3.8 (2.6-4.0) g/dL Albumin/Globulin Ratio 1.2 (0.9-1.6) HCG, Quant 317940.0 mIU/mL Urine Color Urine Appearance Urine pH (5.0-8.0) Ur Specific Vera (1.001-1.035) Urine Protein (NEGATIVE) mg/dL Urine Glucose (UA) (NEGATIVE) mg/dL Urine Ketones (NEGATIVE) mg/dL Urine Occult Blood (NEGATIVE) Urine Nitrite (NEGATIVE) Urine Bilirubin (NEGATIVE) Urine Ictotest Urine Urobilinogen (<2.0) EU/dL Ur Leukocyte Esterase (NEGATIVE) Urine RBC (0-2/HPF) Urine WBC (0-5/HPF) Ur Epithelial Cells (NONE-FEW) Urine Bacteria (NEGATIVE) Urine Mucus (NONE-MOD) Blood Type O POSITIVE 10/17/20 Range/Units 01:36 WBC (4.0-11.0) K/uL RBC (4.30-5.90) M/uL Hgb (12.0-16.0) g/dL Hct (36.0-46.0) % MCV (80.0-98.0) fL MCH (27.0-32.0) pg MCHC (31.0-37.0) g/dL RDW Std Deviation (28.0-62.0) fl RDW Coeff of Avis (11.0-15.0) % Plt Count (150-400) K/uL MPV (7.40-12.00) fL Neut % (Auto) (48.0-80.0) % Lymph % (Auto) (16.0-40.0) % [place] % (Auto) (0.0-15.0) % Eos % (Auto) (0.0-7.0) % Baso % (Auto) (0.0-1.5) % Neut # (Auto) (1.4-5.7) K/uL Lymph # (Auto) (0.6-2.4) K/uL [place] # (Auto) (0.0-0.8) K/uL Eos # (Auto) (0.0-0.7) K/uL Baso # (Auto) (0.0-0.1) K/uL Nucleated RBC % /100WBC Nucleated RBCs # K/uL Sodium (136-145) mmol/L Potassium (3.5-5.1) mmol/L Chloride (98-107) mmol/L Carbon Dioxide (21.0-32.0) mmol/L BUN (7.0-18.0) mg/dL Creatinine (0.6-1.0) mg/dL Est Cr Clr Drug Dosing mL/min Estimated GFR (MDRD) ml/min Glucose (74-106) mg/dL Calcium (8.5-10.1) mg/dL Total Bilirubin (0.2-1.0) mg/dL AST (15-37) IU/L ALT (14-63) IU/L Alkaline Phosphatase (46-116) U/L Total Protein (6.4-8.2) g/dL Albumin (3.4-5.0) g/dL Globulin (2.6-4.0) g/dL Albumin/Globulin Ratio (0.9-1.6) HCG, Quant mIU/mL Urine Color DARK YELLOW Urine Appearance CLOUDY Urine pH 6.0 (5.0-8.0) Ur Specific Vera 1.025 (1.001-1.035) Urine Protein 30 H (NEGATIVE) mg/dL Urine Glucose (UA) NEGATIVE (NEGATIVE) mg/dL Urine Ketones >=80 (NEGATIVE) mg/dL Urine Occult Blood NEGATIVE (NEGATIVE) Urine Nitrite POSITIVE H (NEGATIVE) Urine Bilirubin SMALL H (NEGATIVE) Urine Ictotest POSITIVE Urine Urobilinogen 1.0 (<2.0) EU/dL Ur Leukocyte Esterase SMALL H (NEGATIVE) Urine RBC NONE SEEN (0-2/HPF) Urine WBC 7-9 (0-5/HPF) Ur Epithelial Cells MANY (NONE-FEW) Urine Bacteria 3+ H (NEGATIVE) Urine Mucus MODERATE (NONE-MOD) Blood Type Meds: Medications Discontinued Medications Generic Name Dose Route Start Last Admin Trade Name Freq PRN Reason Stop Dose Admin Sodium Chloride 1,000 mls @ 999 mls/hr 10/16/20 23:58 10/17/20 00:11 Normal Saline IV 10/17/20 00:58 999 mls/hr .Bolus ONE Administration Ondansetron HCl 4 mg 10/16/20 23:58 10/17/20 00:11 Ondansetron 4 Mg/2 Ml Sdv IVPUSH 10/16/20 23:59 4 mg ONETIME ONE Administration Ondansetron HCl 4 mg 10/17/20 01:37 10/17/20 01:42 Ondansetron 4 Mg/2 Ml Sdv IVPUSH 10/17/20 01:38 4 mg ONETIME ONE Administration Sodium Chloride 10 ml 10/16/20 23:58 10/17/20 00:11 Sodium Chloride 0.9% 10 Ml Syringe FLUSH 10 ml ASDIRECTED PRN Administration Keep Vein Open Sodium Chloride 2.5 ml 10/16/20 23:58 10/17/20 00:11 Sodium Chloride 0.9% 2.5 Ml Syringe FLUSH 2.5 ml ASDIRECTED PRN Administration Keep Vein Open Departure - Departure Time of Disposition: 02:15 Disposition: Home, Self-Care 01 Condition: Good Clinical Impression: Hyperemesis gravidarum, Dehydration - Discharge Information Prescriptions: Ondansetron [Zofran ODT] 4 mg PO Q6H PRN #12 tab.dis PRN Reason: Nausea Instructions: Morning Sickness, [id number], Dehydration, Adult, [id number] Referrals: PCP,None [Primary Care Provider] - Forms: ED Department Discharge Additional Instructions: You were seen and evaluated in the ER today secondary to vomiting in . Please return to the ER if you develop any abdominal discomfort or vaginal bleeding. You will be given a prescription for Zofran to assist you with your symptoms. Please make an appointment to see your OB doctor as soon as you can. The following information is given to patients seen in the emergency department who are being discharged to home. This information is to outline your options for follow-up care. We provide all patients seen in our emergency department with a follow-up referral. The need for follow-up, as well as the timing and circumstances, are variable depending upon the specifics of your emergency department visit. If you don't have a primary care physician on staff, we will provide you with a referral. We always advise you to contact your personal physician following an emergency department visit to inform them of the circumstance of the visit and for follow-up with them and/or the need for any referrals to a consulting specialist. The emergency department will also refer you to a specialist when appropriate. This referral assures that you have the opportunity for follow-up care with a specialist. All of these measure are taken in an effort to provide you with optimal care, which includes your follow-up. Under all circumstances we always encourage you to contact your private physician who remains a resource for coordinating your care. When calling for follow-up care, please make the office aware that this follow-up is from your recent emergency room visit. If for any reason you are refused follow-up, please contact the [facility] Emergency Department at and asked to speak to the emergency department charge nurse. [facility] - Primary Care [address] [place] [id number] [id number] Sepsis Event Note (ED) - Evaluation Sepsis Screening Result: No Definite Risk
[2020-10-17 01:19] LABS: BLOOD UREA NITROGEN,BUN 12 mg/dL (7.0-18.0); CARBON DIOXIDE,CO2 26.9 mmol/L (21.0-32.0); CHLORIDE,CL 97 mmol/L (98-107); GLUCOSE RANDOM 105 mg/dL (74-106); POTASSIUM,K 3.2 mmol/L (3.5-5.1); SODIUM,NA 134 mmol/L (136-145)
[2020-10-17] MEDS ORDERED: Ondansetron 4 MG/2 ML SDV IVPUSH ONE (01:37)
[2020-10-17 02:16] VITALS: BP 117/68; PULSE 73
== END 2020-10-17 02:16 | disposition home or self-care (01) ==
LOC: MW.ED 23:22
DX: O21.1 Hyperemesis gravidarum with metabolic disturbance (principal); Z3A.01 Less than 8 weeks gestation of pregnancy; Z88.1 Allergy status to other antibiotic agents
CPT/HCPCS: 36415; 80053; 81001; 84702; 85025; 86900; 86901; 96374; 96376; 99284; J2405; J7030; 99282

== ENCOUNTER 2020-10-20 11:25 | Emergency (ER) | payer SELFPAY ==
[2020-10-20] MEDS ORDERED: Sodium Chloride 0.9% 1,000 ML IV ONE (11:58)
[2020-10-20] MEDS ORDERED: Ondansetron 4 MG/2 ML SDV IVPUSH ONE (11:58)
--- NOTE | 2020-10-20 12:01 | EDM.PDOC ---
ED HPI GENERAL MEDICAL PROBLEM - General Chief Complaint: COMB TENDER Problem Stated Complaint: MORNING SICKNESS,DEHYDRATION Time Seen by Provider: 10/20/20 11:26 Source of Information: Reports: Patient History Limitations: Reports: No Limitations - History of Present Illness INITIAL COMMENTS - FREE TEXT/NARRATIVE: HISTORY AND PHYSICAL: History of present illness: Patient is a 29-year-old female who presents emergency room today with concern of nausea, vomiting, and spotting in early . Patient states her last menstrual cycle was at the beginning of July but is unsure of the exact day. Patient states that she believes to be about 8 weeks but has not had an ultrasound to confirm this. Patient states that she has not establish care with an COMB TENDER for this . Patient states that she was seen in the ED approximately 1 week ago for nausea and vomiting in . Patient states starting yesterday she has had spotting only with wiping and states that she has not had to use a pad. Patient states that the blood is pink and has not had any clotting. Patient states she did have some cramping sensations last night but is not currently having this and denies any current pain at this time. Patient states that she was given Zofran but states that she has had a hard time drinking any fluids despite this medication. Patient states that she has had hyperemesis in her past 2 pregnancies. Patient states she has had 1 prior miscarriage early in . Patient denies fever, chills, chest pain, shortness of breath, or cough. Denies headache, neck stiff ness, change in vision, syncope, or near syncope. Denies abdominal pain, diarrhea, constipation, or dysuria. Has not noted any blood in urine or stool. Patient has been eating and drinking appropriately. Review of systems: As per history of present illness and below otherwise all systems reviewed and negative. Past medical history: As per history of present illness and as reviewed below otherwise noncontributory. Surgical history: As per history of present illness and as reviewed below otherwise noncontributory. Social history: See social history for further information Family history: As per history of present illness and as reviewed below otherwise noncontributory. Physical exam: General: Patient is alert, oriented, and in no acute distress. Patient sitting comfortably on exam table. Vitals stable and reviewed by me. HEENT: Atraumatic, normocephalic, pupils equal and reactive bilaterally, negative for conjunctival pallor or scleral icterus, mucous membranes moist, TMs normal bilaterally, throat clear, neck supple, nontender, trachea midline. No drooling or trismus noted. No meningeal signs. No hot potato voice noted. Lungs: Clear to auscultation, breath sounds equal bilaterally, chest nontender. Heart: S1S2, regular rate and rhythm without overt murmur Abdomen: Soft, nondistended, nontender. Negative for masses or hepatosplenomegaly. Negative for costovertebral tenderness. Pelvis: Stable nontender. Genitourinary: Deferred. Rectal: Deferred. Skin: Intact, warm, dry. No lesions or rashes noted. Extremities: Atraumatic, negative for cords or calf pain. Neurovascular unremarkable. Neuro: Awake, alert, oriented. Cranial nerves II through XII unremarkable. Cerebellum unremarkable. Motor and sensory unremarkable throughout. Exam nonfocal. Notes: On initial exam, patient is well appearing, non toxic, and vitally stable. Will obtain routine labwork as well as blood typing as I am unable to see this done prior on file as she has been spotting. Will also obtain TVUS to r/o possible ectopic, although my suspicion is low due to lack of pain at this time. Blood type O positive TVUS shows single live intrauterine , 7 weeks and 6 days. Small- moderate subchorionic hemorrhage with suspected second smaller subchorionic hemorrhage. Patient has not had any episodes of vomiting today in the ED and able to tolerate PO intake. She has Zofran available at home already but will send RX for Diclegis. Vitally stable and comfortable on exam at discharge. Signs and symptoms that would prompt return tot he ED thoroughly discussed with patient. Discussed importance for establishing care with an COMB TENDER provider and the need for repeat labwork for potassium. Voices understanding and is agreeable to plan of care. Denies any further questions or concerns at this time. Diagnostics: CBC, CMP, UA, Serum hcg quant, TVUS, Rh/Blood type Therapeutics: NS, Zofran Prescription: Diclegis Impression: First trimester bleeding Intrauterine , 7 weeks Nausea and vomiting in Hypokalemia Plan: 1. Please start and/or continue to take your vitamin with folic acid once daily. 2. Pelvic rest until cleared by your OBGYN (no tampons, sex, etc...) 3. Tylenol as needed for pain management. This is safe to use in . 4. Establish care with an COMB TENDER provider as discussed and the need for repeat labwork. Return to the ED as needed and as discussed. Definitive disposition and diagnosis as appropriate pending reevaluation and review of above. lower abdomen Pain Score (Numeric/FACES): 2 - Related Data Allergies Allergy/AdvReac Type Severity Reaction Status Date / Time cephalexin monohydrate Allergy Rash Verified 10/16/20 23:38 [From Keflex] Home Meds: Home Meds Ondansetron [Zofran ODT] 4 mg PO Q6H PRN #12 tab.dis 10/17/20 [Rx] Past Medical History - Past Health History Medical/Surgical History: Denies Medical/Surgical History Cardiovascular History: Reports: None Respiratory History: Reports: None Gastrointestinal History: Reports: None Genitourinary History: Reports: None COMB TENDER History: Reports: Musculoskeletal History: Reports: None Neurological History: Reports: None Psychiatric History: Reports: None Endocrine/Metabolic History: Reports: None Hematologic History: Reports: None Immunologic History: Reports: None Oncologic (Cancer) History: Reports: None Dermatologic History: Reports: None - Infectious Disease History Infectious Disease History: Reports: Chicken Pox - Past Surgical History Head Surgeries/Procedures: Reports: None Cardiovascular Surgical History: Reports: None GI Surgical History: Reports: None Female Surgical History: Reports: None Social & Family History - Family History Family Medical History: No Pertinent Family History OBGYN: Reports: - Caffeine Use Caffeine Use: Reports: None ED ROS GENERAL - Review of Systems Review Of Systems: Comprehensive ROS is negative, except as noted in HPI. ED EXAM, GENERAL - Physical Exam Exam: See Below (see dictation) Course - Vital Signs Last Recorded V/S: Last Vital Signs Temp 96.6 F L 10/20/20 11:32 Pulse 72 10/20/20 12:57 Resp 16 10/20/20 12:57 BP 117/71 10/20/20 12:57 Pulse Ox 97 10/20/20 12:57 - Orders/Labs/Meds Orders: Active Orders 24 hr Category Date Time Status Communication Order [RC] STAT Care 10/20/20 13:15 Active UA RFX AYLA AND CULT IF INDIC [URIN] Stat Lab 10/20/20 11:57 Ordered Labs: Laboratory Tests 10/20/20 10/20/20 10/20/20 Range/Units 11:50 11:50 11:50 WBC 13.48 H (4.0-11.0) K/uL RBC 5.07 (4.30-5.90) M/uL Hgb 16.1 H (12.0-16.0) g/dL Hct 44.7 (36.0-46.0) % MCV 88.2 (80.0-98.0) fL MCH 31.8 (27.0-32.0) pg MCHC 36.0 (31.0-37.0) g/dL RDW Std Deviation 40.5 (28.0-62.0) fl RDW Coeff of Avis 13 (11.0-15.0) % Plt Count 223 (150-400) K/uL MPV 10.90 (7.40-12.00) fL Neut % (Auto) 78.2 (48.0-80.0) % Lymph % (Auto) 14.3 L (16.0-40.0) % [place] % (Auto) 7.1 (0.0-15.0) % Eos % (Auto) 0.3 (0.0-7.0) % Baso % (Auto) 0.1 (0.0-1.5) % Neut # (Auto) 10.5 H (1.4-5.7) K/uL Lymph # (Auto) 1.9 (0.6-2.4) K/uL [place] # (Auto) 1.0 H (0.0-0.8) K/uL Eos # (Auto) 0.0 (0.0-0.7) K/uL Baso # (Auto) 0.0 (0.0-0.1) K/uL Nucleated RBC % 0.0 /100WBC Nucleated RBCs # 0 K/uL Sodium 135 L (136-145) mmol/L Potassium 3.0 L (3.5-5.1) mmol/L Chloride 97 L (98-107) mmol/L Carbon Dioxide 24.0 (21.0-32.0) mmol/L BUN 10 (7.0-18.0) mg/dL Creatinine 0.7 (0.6-1.0) mg/dL Est Cr Clr Drug Dosing 98.98 mL/min Estimated GFR (MDRD) > 60.0 ml/min Glucose 109 H (74-106) mg/dL Calcium 9.6 (8.5-10.1) mg/dL Magnesium (1.8-2.4) mg/dL Total Bilirubin 1.4 H (0.2-1.0) mg/dL AST 23 (15-37) IU/L ALT 30 (14-63) IU/L Alkaline Phosphatase 28 L (46-116) U/L Total Protein 7.8 (6.4-8.2) g/dL Albumin 4.3 (3.4-5.0) g/dL Globulin 3.5 (2.6-4.0) g/dL Albumin/Globulin Ratio 1.2 (0.9-1.6) HCG, Quant 717417.0 mIU/mL Blood Type O POSITIVE 10/20/20 Range/Units 11:50 WBC (4.0-11.0) K/uL RBC (4.30-5.90) M/uL Hgb (12.0-16.0) g/dL Hct (36.0-46.0) % MCV (80.0-98.0) fL MCH (27.0-32.0) pg MCHC (31.0-37.0) g/dL RDW Std Deviation (28.0-62.0) fl RDW Coeff of Avis (11.0-15.0) % Plt Count (150-400) K/uL MPV (7.40-12.00) fL Neut % (Auto) (48.0-80.0) % Lymph % (Auto) (16.0-40.0) % [place] % (Auto) (0.0-15.0) % Eos % (Auto) (0.0-7.0) % Baso % (Auto) (0.0-1.5) % Neut # (Auto) (1.4-5.7) K/uL Lymph # (Auto) (0.6-2.4) K/uL [place] # (Auto) (0.0-0.8) K/uL Eos # (Auto) (0.0-0.7) K/uL Baso # (Auto) (0.0-0.1) K/uL Nucleated RBC % /100WBC Nucleated RBCs # K/uL Sodium (136-145) mmol/L Potassium (3.5-5.1) mmol/L Chloride (98-107) mmol/L Carbon Dioxide (21.0-32.0) mmol/L BUN (7.0-18.0) mg/dL Creatinine (0.6-1.0) mg/dL Est Cr Clr Drug Dosing mL/min Estimated GFR (MDRD) ml/min Glucose (74-106) mg/dL Calcium (8.5-10.1) mg/dL Magnesium 1.8 (1.8-2.4) mg/dL Total Bilirubin (0.2-1.0) mg/dL AST (15-37) IU/L ALT (14-63) IU/L Alkaline Phosphatase (46-116) U/L Total Protein (6.4-8.2) g/dL Albumin (3.4-5.0) g/dL Globulin (2.6-4.0) g/dL Albumin/Globulin Ratio (0.9-1.6) HCG, Quant mIU/mL Blood Type Meds: Medications Discontinued Medications Generic Name Dose Route Start Last Admin Trade Name Freq PRN Reason Stop Dose Admin Sodium Chloride 1,000 mls @ 999 mls/hr 10/20/20 11:58 10/20/20 12:56 Normal Saline IV 10/20/20 12:58 999 mls/hr STAT ONE Administration Ondansetron HCl 4 mg 10/20/20 11:58 10/20/20 12:56 Ondansetron 4 Mg/2 Ml Sdv IVPUSH 10/20/20 11:59 4 mg ONETIME ONE Administration Potassium Chloride 40 meq 10/20/20 13:14 10/20/20 13:50 Potassium Chloride 20 Meq Tab.Er PO 10/20/20 13:15 40 meq ONETIME ONE Administration Departure - Departure Time of Disposition: 13:57 Disposition: Home, Self-Care 01 Clinical Impression: First trimester bleeding, Intrauterine , Nausea and vomiting during , Hypokalemia - Discharge Information Referrals: PCP,None [Primary Care Provider] - Forms: ED Department Discharge Additional Instructions: The following information is given to patients seen in the emergency department who are being discharged to home. This information is to outline your options for follow-up care. We provide all patients seen in our emergency department with a follow-up referral. The need for follow-up, as well as the timing and circumstances, are variable depending upon the specifics of your emergency department visit. If you don't have a primary care physician on staff, we will provide you with a referral. We always advise you to contact your personal physician following an emergency department visit to inform them of the circumstance of the visit and for follow-up with them and/or the need for any referrals to a consulting specialist. The emergency department will also refer you to a specialist when appropriate. This referral assures that you have the opportunity for follow-up care with a specialist. All of these measure are taken in an effort to provide you with optimal care, which includes your follow-up. Under all circumstances we always encourage you to contact your private physician who remains a resource for coordinating your care. When calling for follow-up care, please make the office aware that this follow-up is from your recent emergency room visit. If for any reason you are refused follow-up, please contact the [facility] Emergency Department at and asked to speak to the emergency department charge nurse. [facility] [address] [place] [address] [facility] [address] [place] [address] [facility] [address] [place] [address] 1. Please start and/or continue to take your vitamin with folic acid once daily. 2. Pelvic rest until cleared by your OBGYN (no tampons, sex, etc...) 3. Tylenol as needed for pain management. This is safe to use in . 4. Establish care with an COMB TENDER provider as discussed and the need for repeat labwork. Return to the ED as needed and as discussed. Sepsis Event Note (ED) - Focused Exam Vital Signs: Vital Signs Temp Pulse Resp BP Pulse Ox 10/20/20 12:57 72 16 117/71 97 10/20/20 11:32 96.6 F L 125 H 17 116/80 96 - My Orders Last 24 Hours: My Active Orders 10/20/20 11:57 UA RFX AYLA AND CULT IF INDIC [URIN] Stat 10/20/20 13:15 Communication Order [RC] STAT - Assessment/Plan Last 24 Hours: My Active Orders 10/20/20 11:57 UA RFX AYLA AND CULT IF INDIC [URIN] Stat 10/20/20 13:15 Communication Order [RC] STAT
[2020-10-20 12:38] LABS: BLOOD UREA NITROGEN,BUN 10 mg/dL (7.0-18.0); CHLORIDE,CL 97 mmol/L (98-107); GLUCOSE RANDOM 109 mg/dL (74-106); SODIUM,NA 135 mmol/L (136-145)
--- NOTE | 2020-10-20 13:07 | US ---
HISTORY: Bleeding and pain. Early . TECHNIQUE: Ultrasound of the pelvis using transvaginal technique. COMPARISON: None. FINDINGS: Single intrauterine gestational sac. Mean gestational sac is thinned but pole is present. cardiac activity with heart rate 167 beats per minute. [place]-rump length of 14 mm corresponds estimated gestational age 7 weeks 6 days. Normal appearing 5 mm yolk sac. Approximate 15 x 5 mm anechoic collection along the right lateral aspect of the gestational sac consistent with subchorionic hemorrhage. 10 x 5 mm heterogeneous hypoechoic region with some internal echogenic material along the left lateral aspect of the gestational sac may be an additional site of subchorionic hemorrhage. Right ovary measures 3.2 x 2.7 x 1.4 cm. Normal appearance of right ovary. Blood flow present the right ovary. Left ovary measures 3 x 3.3 x 3.2 cm. 1.8 cm rounded echogenic region in the left ovary may be a corpus luteum. Trace free fluid in the pelvis. IMPRESSION: 1. Single live intrauterine gestation with estimated gestational age 7 weeks 6 days. 2. Small to moderate size subchorionic hemorrhage with suspected second smaller subchorionic hemorrhage. Dictated by Clarence Mcadams MD @ Oct 20 2020 1:05PM Signed by Dr. Clarence Mcadams @ Oct 20 2020 1:05PM
[2020-10-20] MEDS ORDERED: Potassium Chloride 20 MEQ Tab.ER PO ONE (13:14)
[2020-10-20 14:14] VITALS: BP 100/47; PULSE 68
== END 2020-10-20 14:28 | disposition home or self-care (01) ==
LOC: MW.ED 11:25
DX: O20.9 Hemorrhage in early pregnancy, unspecified (principal); O21.9 Vomiting of pregnancy, unspecified; O99.281 Endocrine, nutritional and metabolic diseases complicating pregnancy, first trimester; E87.6 Hypokalemia; Z88.1 Allergy status to other antibiotic agents; Z3A.01 Less than 8 weeks gestation of pregnancy
CPT/HCPCS: 36415; 76801; 80053; 83735; 84702; 85025; 86900; 86901; 96374; 99284; A9270; J2405; J7030; 99283

== ENCOUNTER 2021-05-06 17:05 | Emergency (ER) | payer SELFPAY ==
[2021-05-06] MEDS ORDERED: Ondansetron 4 MG/2 ML SDV IVPUSH ONE ×2 (18:31→20:10)
[2021-05-06] MEDS ORDERED: Sodium Chloride 0.9% 1,000 ML IV ONE (18:31)
[2021-05-06 18:46] LABS: BLOOD UREA NITROGEN,BUN 14 mg/dL (7.0-18.0); CARBON DIOXIDE,CO2 26.6 mmol/L (21.0-32.0); CHLORIDE,CL 93 mmol/L (98-107); GLUCOSE RANDOM 169 mg/dL (74-106); SODIUM,NA 135 mmol/L (136-145)
[2021-05-06] MEDS ORDERED: Ondansetron 4 MG/2 ML SDV ONE (20:11)
[2021-05-06] MEDS ORDERED: Sodium Chloride 0.9% 500 ML IV SCH (20:15)
[2021-05-06] MEDS ORDERED: Sodium Chloride 0.9% 1,000 ML IV STA (20:16)
--- NOTE | 2021-05-06 21:13 | EDM.PDOC ---
ED HPI GENERAL MEDICAL PROBLEM - General Chief Complaint: Gastrointestinal Problem Stated Complaint: VOMITING Time Seen by Provider: 05/06/21 18:06 Source of Information: Reports: Patient History Limitations: Reports: No Limitations - History of Present Illness INITIAL COMMENTS - FREE TEXT/NARRATIVE: HISTORY AND PHYSICAL: History of present illness: Patient is a , 30-year-old female, who has not establish care with an PLANT CYTOLOGIST provider at this time, who presents emergency room today with concern of nausea and vomiting in early . Patient states based off of her last menstrual cycle, she is approximately 6 weeks. Patient states that all of her pregnancies that she has had significant nausea and vomiting in the first trimester. Patient states that she did have a miscarriage in September and states that she never followed up with any PLANT CYTOLOGIST provider. Patient states that she is on sure who she will follow up with at this time and does not have a plan. Tiffanie ent states that she is having some upper abdominal discomfort that she believes to be unrelated to vomiting so much but states that she is not having any vaginal bleeding, change in discharge, lower abdominal cramping or discomfort. Patient states that she does feel dehydrated. Patient denies any other symptoms or concerns. Patient denies fever, chills, chest pain, shortness of breath, or cough. Denies headache, neck stiff ness, change in vision, syncope, or near syncope. Denies diarrhea, constipation, or dysuria. Has not noted any blood in urine or stool. Review of systems: As per history of present illness and below otherwise all systems reviewed and negative. Past medical history: As per history of present illness and as reviewed below otherwise noncontributory. Surgical history: As per history of present illness and as reviewed below otherwise noncontributory. Social history: See social history for further information Family history: As per history of present illness and as reviewed below otherwise noncontributory. Physical exam: General: Patient is alert, oriented, and in no acute distress. Patient sitting comfortably on exam table. Vitals stable and reviewed by me. HEENT: Atraumatic, normocephalic, pupils equal and reactive bilaterally, negative for conjunctival pallor or scleral icterus, mucous membranes dry, throat clear, neck supple, nontender, trachea midline. No drooling or trismus noted. No meningeal signs. No hot potato voice noted. Lungs: Clear to auscultation, breath sounds equal bilaterally, chest nontender. Heart: S1S2, regular rate and rhythm without overt murmur Abdomen: Soft, nondistended, mild upper abdominal tenderness with negative rebound, negative Carmichael and no guarding. Negative for masses or hepatosplenomegaly. Negative for costovertebral tenderness. Pelvis: Stable nontender. Genitourinary: Deferred. Rectal: Deferred. Skin: Intact, warm, dry. No lesions or rashes noted. Extremities: Atraumatic, negative for cords or calf pain. Neurovascular unremarkable. Neuro: Awake, alert, oriented. Cranial nerves II through XII unremarkable. Cerebellum unremarkable. Motor and sensory unremarkable throughout. Exam nonfocal. Notes: Patient is a 30-year-old female who presents emergency room secondary to nausea and vomiting in early . Patient does express some upper abdominal pain that she believes related in relation to vomiting but denies any other symptoms or concerns. Upon arrival to the ED, patient is vitally stable and otherwise well-appearing on exam. Patient does have dry mucous membranes and is periodically vomiting on exam. Patient does have some mild upper abdominal tenderness but exam is otherwise unremarkable. Will obtain basic lab work, blood type/hCG quant and transvaginal ultrasound given patient has not had an ultrasound during this with now having abdominal pain. CBC shows mild leukocytosis at 1223 7, otherwise CBC unremarkable. CMP shows mild hyponatremia at 135, hypochloremia 93. Glucose is mildly elevated at 169. Isolated total bilirubin at 1.3 which is mild. Otherwise mild derangements of CMP unremarkable. hCG quant is 69,473. Patient's blood type is O+. At this time, there is a delay in radiology interpretation of TVUS. Patient is requesting to leave the ED prior to radiology interpretation. However, I am able to personally see images and verify an intrauterine . All risks versus benefits discussed with patient and expresses understanding. Upon reevaluation of patient, she is able to eat ice chips today in the emergency room without continued vomiting. I will send patient a prescription for Diclegis and a few tabs of Zofran. However, discussed with patient the importance of calling a women's health care clinic tomorrow to establish close follow-up. Strict return precautions thoroughly discussed with patient. Discussed importance for follow-up with PLANT CYTOLOGIST provider. Voices understanding and is agreeable to plan of care. Denies any further questions or concerns at this time. Vaginal ultrasound does show a live early intrauterine with estimated menstrual age of 6 weeks and 1 day. Trace amount of subchorionic hemorrhage. Diagnostics: CBC, CMP, blood type, hCG quant, transvaginal ultrasound Therapeutics: Normal saline, Zofran Prescription: Diclegis, Zofran Impression: Intrauterine Nausea and vomiting in Dehydration Plan: 1. Please start and/or continue to take your vitamin with folic acid once daily. Take medication as prescribed. Encourage small but frequent sips of fluid to prevent dehydration. 2. Tylenol as needed for pain management. This is safe to use in . 3. Follow up with your PLANT CYTOLOGIST as discussed. Call the clinic in the morning to establish an appointment time as discussed. Return to the ED as needed and as discussed. Definitive disposition and diagnosis as appropriate pending reevaluation and review of above. Abdomen Pain Score (Numeric/FACES): 3 - Related Data Allergies Allergy/AdvReac Type Severity Reaction Status Date / Time cephalexin monohydrate Allergy Rash Verified 05/06/21 17:45 [From Keflex] Home Meds: Home Meds Ondansetron [Zofran ODT] 4 mg PO Q6H PRN #12 tab.dis 10/17/20 [Rx] Doxylamine Succinate/Vit B6 [Milanas Dr 10-10 mg Tablet] 2 tab PO QPM 14 Days #28 tablet. 05/06/21 [Rx] Ondansetron [Zofran ODT] 4 mg PO Q6H PRN #4 tab.dis 05/06/21 [Rx] Past Medical History - Past Health History Medical/Surgical History: Denies Medical/Surgical History Cardiovascular History: Reports: None Respiratory History: Reports: None Gastrointestinal History: Reports: None Genitourinary History: Reports: None PLANT CYTOLOGIST History: Reports: Musculoskeletal History: Reports: None Neurological History: Reports: None Psychiatric History: Reports: None Endocrine/Metabolic History: Reports: None Hematologic History: Reports: None Immunologic History: Reports: None Oncologic (Cancer) History: Reports: None Dermatologic History: Reports: None - Infectious Disease History Infectious Disease History: Reports: Chicken Pox - Past Surgical History Head Surgeries/Procedures: Reports: None Cardiovascular Surgical History: Reports: None GI Surgical History: Reports: None Female Surgical History: Reports: None Social & Family History - Family History Family Medical History: No Pertinent Family History OBGYN: Reports: - Tobacco Use Tobacco Use Status *Q: Never Tobacco User - Caffeine Use Caffeine Use: Reports: Coffee, Soda - Recreational Drug Use Recreational Drug Use: Yes Recreational Drug Type: Reports: Marijuana/Hashish ED ROS GENERAL - Review of Systems Review Of Systems: Comprehensive ROS is negative, except as noted in HPI. ED EXAM, GENERAL - Physical Exam Exam: See Below (See dictation) Course - Vital Signs Last Recorded V/S: Last Vital Signs Temp 97.8 F 05/06/21 17:40 Pulse 71 05/06/21 17:40 Resp 16 05/06/21 17:40 BP 140/69 05/06/21 17:40 Pulse Ox 100 05/06/21 17:40 - Orders/Labs/Meds Orders: Active Orders 24 hr Category Date Time Status UA RFX AYLA AND CULT IF INDIC [URIN] Stat Lab 05/06/21 18:30 Ordered Labs: Laboratory Tests 05/06/21 05/06/21 05/06/21 Range/Units 18:12 18:12 18:12 WBC 12.37 H (4.0-11.0) K/uL RBC 5.23 (4.30-5.90) M/uL Hgb 16.0 (12.0-16.0) g/dL Hct 45.8 (36.0-46.0) % MCV 87.6 (80.0-98.0) fL MCH 30.6 (27.0-32.0) pg MCHC 34.9 (31.0-37.0) g/dL RDW Std Deviation 42.4 (28.0-62.0) fl RDW Coeff of Avis 13 (11.0-15.0) % Plt Count 267 (150-400) K/uL MPV 11.50 (7.40-12.00) fL Neut % (Auto) 84.0 H (48.0-80.0) % Lymph % (Auto) 9.7 L (16.0-40.0) % Twiggs % (Auto) 6.2 (0.0-15.0) % Eos % (Auto) 0.1 (0.0-7.0) % Baso % (Auto) 0.0 (0.0-1.5) % Neut # (Auto) 10.4 H (1.4-5.7) K/uL Lymph # (Auto) 1.2 (0.6-2.4) K/uL Twiggs # (Auto) 0.8 (0.0-0.8) K/uL Eos # (Auto) 0.0 (0.0-0.7) K/uL Baso # (Auto) 0.0 (0.0-0.1) K/uL Sodium 135 L (136-145) mmol/L Potassium 4.0 (3.5-5.1) mmol/L Chloride 93 L (98-107) mmol/L Carbon Dioxide 26.6 (21.0-32.0) mmol/L BUN 14 (7.0-18.0) mg/dL Creatinine 0.8 (0.6-1.0) mg/dL Est Cr Clr Drug Dosing 85.83 mL/min Estimated GFR (MDRD) > 60.0 ml/min Glucose 169 H (74-106) mg/dL Calcium 10.3 H (8.5-10.1) mg/dL Total Bilirubin 1.3 H (0.2-1.0) mg/dL AST 16 (15-37) IU/L ALT 21 (14-63) IU/L Alkaline Phosphatase 30 L (46-116) U/L Total Protein 8.7 H (6.4-8.2) g/dL Albumin 4.7 (3.4-5.0) g/dL Globulin 4.0 (2.6-4.0) g/dL Albumin/Globulin Ratio 1.2 (0.9-1.6) HCG, Quant 60507.0 mIU/mL Blood Type O POSITIVE Meds: Medications Discontinued Medications Generic Name Dose Route Start Last Admin Trade Name Freq PRN Reason Stop Dose Admin Sodium Chloride 1,000 mls @ 999 mls/hr 05/06/21 18:31 05/06/21 18:47 Normal Saline IV 05/06/21 19:31 999 mls/hr STAT ONE Administration Sodium Chloride 500 mls @ 999 mls/hr 05/06/21 20:15 Normal Saline IV STAT MARCIANO Sodium Chloride 1,000 mls @ 999 mls/hr 05/06/21 20:16 05/06/21 20:17 Normal Saline IV 05/06/21 21:16 999 mls/hr NOW STA Administration Ondansetron HCl 4 mg 05/06/21 18:31 05/06/21 18:47 Ondansetron 4 Mg/2 Ml Sdv IVPUSH 05/06/21 18:32 4 mg ONETIME ONE Administration Ondansetron HCl 4 mg 05/06/21 20:10 05/06/21 20:16 Ondansetron 4 Mg/2 Ml Sdv IVPUSH 05/06/21 20:11 4 mg ONETIME ONE Administration Ondansetron HCl Confirm 05/06/21 20:11 05/06/21 20:16 Ondansetron 4 Mg/2 Ml Sdv Administered 05/06/21 20:12 Not Given Dose 4 mg .ROUTE .STK-MED ONE Departure - Departure Time of Disposition: 21:12 Disposition: Home, Self-Care 01 Clinical Impression: Nausea and vomiting during , Intrauterine , Dehydration - Discharge Information Prescriptions: Doxylamine Succinate/Vit B6 [Jeremy oMntoya 10-10 mg Tablet] 2 tab PO QPM 14 Days #28 tablet. Ondansetron [Zofran ODT] 4 mg PO Q6H PRN #4 tab.dis PRN Reason: Nausea/Vomiting Instructions: Nausea and Vomiting, Adult Referrals: PCP,None [Primary Care Provider] - Forms: ED Department Discharge Additional Instructions: The following information is given to patients seen in the emergency department who are being discharged to home. This information is to outline your options for follow-up care. We provide all patients seen in our emergency department with a follow-up referral. The need for follow-up, as well as the timing and circumstances, are variable depending upon the specifics of your emergency department visit. If you don't have a primary care physician on staff, we will provide you with a referral. We always advise you to contact your personal physician following an emergency department visit to inform them of the circumstance of the visit and f or follow-up with them and/or the need for any referrals to a consulting specialist. The emergency department will also refer you to a specialist when appropriate. This referral assures that you have the opportunity for follow-up care with a specialist. All of these measure are taken in an effort to provide you with optimal care, which includes your follow-up. Under all circumstances we always encourage you to contact your private physician who remains a resource for coordinating your care. When calling for follow-up care, please make the office aware that this follow-up is from your recent emergency room visit. If for any reason you are refused follow-up, please contact the [facility] Emergency Department at and asked to speak to the emergency department charge nurse. [facility] [address] [place] [id number] [facility] [address] [place] [address] 1. Please start and/or continue to take your vitamin with folic acid once daily. Take medication as prescribed. Encourage small but frequent sips of fluid to prevent dehydration. 2. Tylenol as needed for pain management. This is safe to use in . 3. Follow up with your PLANT CYTOLOGIST as discussed. Call the clinic in the morning to establish an appointment time as discussed. Return to the ED as needed and as discussed. Sepsis Event Note (ED) - Focused Exam Vital Signs: Vital Signs Temp Pulse Resp BP Pulse Ox 05/06/21 17:40 97.8 F 71 16 140/69 100 - My Orders Last 24 Hours: My Active Orders 05/06/21 18:30 UA RFX AYLA AND CULT IF INDIC [URIN] Stat - Assessment/Plan Last 24 Hours: My Active Orders 05/06/21 18:30 UA RFX AYLA AND CULT IF INDIC [URIN] Stat
--- NOTE | 2021-05-06 21:31 | US ---
INDICATION: nausea and vomiting OBSTETRICAL ULTRASOUND Technique: Transvaginal scanning of the pelvis was performed. Findings: The uterus contains a gestational sac. The gestational sac contains a yolk sac and an embryonic pole which exhibits cardiac activity with a heart rate of 120 BPM. The crown-rump length corresponds to an estimated menstrual age of 6 weeks 1 day and an INOCENCIO of 12/29/2021. There is a tiny collection of hypoechoic material adjacent to the gestational sac consistent with a trace subchorionic hemorrhage. The ovaries appear within normal limits bilaterally. There is a probable corpus luteum within the left ovary. No significant free pelvic fluid is identified. IMPRESSION: 1. Live early intrauterine with estimated menstrual age of 6 weeks 1 day and INOCENCIO of 12/29/2021. 2. Trace amount of subchorionic hemorrhage. JEFF CHURCHILL MD [employer] Dictated by Edgar Churchill MD @ 05/06/2021 9:29:15 PM Dictated by: Edgar Churchill MD @ 05/06/2021 21:30:18 (Electronically Signed)
[2021-05-06 21:58] VITALS: BP 110/70; PULSE 74
== END 2021-05-06 21:30 | disposition home or self-care (01) ==
LOC: MW.ED 17:05
DX: O21.9 Vomiting of pregnancy, unspecified (principal); O99.281 Endocrine, nutritional and metabolic diseases complicating pregnancy, first trimester; E86.0 Dehydration; Z88.1 Allergy status to other antibiotic agents; Z3A.01 Less than 8 weeks gestation of pregnancy
CPT/HCPCS: 36415; 76801; 80053; 84702; 85025; 86900; 86901; 96374; 96376; 99284; J2405; J7030

== ENCOUNTER 2021-05-11 15:46 | Emergency (ER) | payer SELFPAY ==
[2021-05-11] MEDS ORDERED: Ondansetron 4 MG/2 ML SDV IVPUSH ONE ×3 (15:49→17:34)
[2021-05-11] MEDS ORDERED: Sodium Chloride 0.9% 1,000 ML IV ONE ×2 (15:49→16:09)
[2021-05-11] MEDS ORDERED: diphenhydrAMINE 50 MG/ML SDV IVPUSH ONE (15:49)
[2021-05-11] MEDS ORDERED: Famotidine 20 MG/2 ML SDV IVPUSH ONE (15:49)
--- NOTE | 2021-05-11 15:51 | EDM.PDOC ---
ED HPI GENERAL MEDICAL PROBLEM - General Stated Complaint: NAUSEA/ABDOMINAL PAIN/ Time Seen by Provider: 05/11/21 15:47 Source of Information: Reports: Patient History Limitations: Reports: No Limitations - History of Present Illness INITIAL COMMENTS - FREE TEXT/NARRATIVE: 50F approximately 7-weeks presents for nausea and vomiting. Patient was seen in the emergency department for similar complaint 5 days ago. She underwent lab work revealing mild hyponatremia of 135, hypochloremia of 93, quantitative beta-hCG of 69,473, transvaginal ultrasound revealing live intrauterine with an estimated gestational age of 6 weeks and 1 day and trace subchorionic hemorrhage. She was discharged with a prescription of Diclegis and Zofran. She states that despite taking the Zofran she is still having uncontrollable emesis and unable to keep anything down including liquids. She states that this is happened before in her early . She states that she tried to make an appointment with [facility] but they refused to see her until she is 10 weeks . She denies vaginal bleeding or any other symptoms. epigastric Pain Score (Numeric/FACES): 5 - Related Data Allergies Allergy/AdvReac Type Severity Reaction Status Date / Time cephalexin monohydrate Allergy Rash Verified 05/11/21 15:58 [From Keflex] Home Meds: Home Meds . 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: Musculoskeletal History: Reports: None Neurological History: Reports: None Psychiatric History: Reports: None Endocrine/Metabolic History: Reports: None Hematologic History: Reports: None Immunologic History: Reports: None Oncologic (Cancer) History: Reports: None Dermatologic History: Reports: None - Infectious Disease History Infectious Disease History: Reports: Chicken Pox - Past Surgical History Head Surgeries/Procedures: Reports: None Cardiovascular Surgical History: Reports: None GI Surgical History: Reports: None Female Surgical History: Reports: None Social & Family History - Family History Family Medical History: No Pertinent Family History OBGYN: Reports: - Caffeine Use Caffeine Use: Reports: Coffee, Soda ED ROS GENERAL - Review of Systems Review Of Systems: Comprehensive ROS is negative, except as noted in HPI. ED EXAM, GENERAL - Physical Exam Exam: See Below Exam Limited By: No Limitations General Appearance: Alert, WD/WN, No Apparent Distress, Anxious Ears: Hearing Grossly Normal Throat/Mouth: Normal Voice, No Airway Compromise Head: Atraumatic, Normocephalic Respiratory/Chest: No Respiratory Distress, Lungs Clear, Normal Breath Sounds, No Accessory Muscle Use Cardiovascular: Normal Peripheral Pulses, Regular Rate, Rhythm GI/Abdominal: Soft, Non-Tender Extremities: Normal Inspection Neurological: Alert Psychiatric: Normal Affect, Normal Mood Skin Exam: Warm, Dry, Intact, Normal Color Course - Vital Signs Last Recorded V/S: Last Vital Signs Temp 96.8 F L 05/11/21 15:55 Pulse 77 05/11/21 17:50 Resp 18 05/11/21 17:50 BP 107/74 05/11/21 17:50 Pulse Ox 97 05/11/21 17:50 - Orders/Labs/Meds Orders: Active Orders 24 hr Category Date Time Status Saline Lock Insert [OM.PC] Stat Oth 05/11/21 15:49 Ordered Labs: Laboratory Tests 05/11/21 05/11/21 05/11/21 Range/Units 16:08 16:08 16:08 WBC 13.72 H (4.0-11.0) K/uL RBC 5.71 (4.30-5.90) M/uL Hgb 17.9 H (12.0-16.0) g/dL Hct 48.1 H (36.0-46.0) % MCV 84.2 (80.0-98.0) fL MCH 31.3 (27.0-32.0) pg MCHC 37.2 H (31.0-37.0) g/dL RDW Std Deviation 38.9 (28.0-62.0) fl RDW Coeff of Avis 13 (11.0-15.0) % Plt Count 278 (150-400) K/uL MPV 11.20 (7.40-12.00) fL Neut % (Auto) 70.3 (48.0-80.0) % Lymph % (Auto) 20.8 (16.0-40.0) % White % (Auto) 8.4 (0.0-15.0) % Eos % (Auto) 0.4 (0.0-7.0) % Baso % (Auto) 0.1 (0.0-1.5) % Neut # (Auto) 9.6 H (1.4-5.7) K/uL Lymph # (Auto) 2.9 H (0.6-2.4) K/uL White # (Auto) 1.2 H (0.0-0.8) K/uL Eos # (Auto) 0.1 (0.0-0.7) K/uL Baso # (Auto) 0.0 (0.0-0.1) K/uL Nucleated RBC % 0.0 /100WBC Nucleated RBCs # 0 K/uL Sodium 131 L (136-145) mmol/L Potassium 3.4 L (3.5-5.1) mmol/L Chloride 90 L (98-107) mmol/L Carbon Dioxide 25.0 (21.0-32.0) mmol/L BUN 11 (7.0-18.0) mg/dL Creatinine 0.8 (0.6-1.0) mg/dL Est Cr Clr Drug Dosing 82.06 mL/min Estimated GFR (MDRD) > 60.0 ml/min Glucose 124 H (74-106) mg/dL Calcium 10.4 H (8.5-10.1) mg/dL Total Bilirubin 1.8 H (0.2-1.0) mg/dL AST 23 (15-37) IU/L ALT 41 (14-63) IU/L Alkaline Phosphatase 30 L (46-116) U/L Total Protein 7.9 (6.4-8.2) g/dL Albumin 4.3 (3.4-5.0) g/dL Globulin 3.6 (2.6-4.0) g/dL Albumin/Globulin Ratio 1.2 (0.9-1.6) Urine Color Urine Appearance Urine pH (5.0-8.0) Ur Specific Olmitz (1.001-1.035) Urine Protein (NEGATIVE) mg/dL Urine Glucose (UA) (NEGATIVE) mg/dL Urine Ketones (NEGATIVE) mg/dL Urine Occult Blood (NEGATIVE) Urine Nitrite (NEGATIVE) Urine Bilirubin (NEGATIVE) Urine Ictotest Urine Urobilinogen (<2.0) EU/dL Ur Leukocyte Esterase (NEGATIVE) Urine RBC (0-2/HPF) Urine WBC (0-5/HPF) Ur Epithelial Cells (NONE-FEW) Urine Bacteria (NEGATIVE) Urine Mucus (NONE-MOD) Ketones NEGATIVE (NEG) 05/11/21 Range/Units 17:30 WBC (4.0-11.0) K/uL RBC (4.30-5.90) M/uL Hgb (12.0-16.0) g/dL Hct (36.0-46.0) % MCV (80.0-98.0) fL MCH (27.0-32.0) pg MCHC (31.0-37.0) g/dL RDW Std Deviation (28.0-62.0) fl RDW Coeff of Avis (11.0-15.0) % Plt Count (150-400) K/uL MPV (7.40-12.00) fL Neut % (Auto) (48.0-80.0) % Lymph % (Auto) (16.0-40.0) % White % (Auto) (0.0-15.0) % Eos % (Auto) (0.0-7.0) % Baso % (Auto) (0.0-1.5) % Neut # (Auto) (1.4-5.7) K/uL Lymph # (Auto) (0.6-2.4) K/uL White # (Auto) (0.0-0.8) K/uL Eos # (Auto) (0.0-0.7) K/uL Baso # (Auto) (0.0-0.1) K/uL Nucleated RBC % /100WBC Nucleated RBCs # K/uL Sodium (136-145) mmol/L Potassium (3.5-5.1) mmol/L Chloride (98-107) mmol/L Carbon Dioxide (21.0-32.0) mmol/L BUN (7.0-18.0) mg/dL Creatinine (0.6-1.0) mg/dL Est Cr Clr Drug Dosing mL/min Estimated GFR (MDRD) ml/min Glucose (74-106) mg/dL Calcium (8.5-10.1) mg/dL Total Bilirubin (0.2-1.0) mg/dL AST (15-37) IU/L ALT (14-63) IU/L Alkaline Phosphatase (46-116) U/L Total Protein (6.4-8.2) g/dL Albumin (3.4-5.0) g/dL Globulin (2.6-4.0) g/dL Albumin/Globulin Ratio (0.9-1.6) Urine Color YELLOW Urine Appearance SLT CLOUDY Urine pH 6.5 (5.0-8.0) Ur Specific Olmitz 1.020 (1.001-1.035) Urine Protein NEGATIVE (NEGATIVE) mg/dL Urine Glucose (UA) NEGATIVE (NEGATIVE) mg/dL Urine Ketones >=80 (NEGATIVE) mg/dL Urine Occult Blood TRACE-INTACT H (NEGATIVE) Urine Nitrite NEGATIVE (NEGATIVE) Urine Bilirubin SMALL H (NEGATIVE) Urine Ictotest NEGATIVE Urine Urobilinogen >=8.0 H (<2.0) EU/dL Ur Leukocyte Esterase MODERATE H (NEGATIVE) Urine RBC 0-2 (0-2/HPF) Urine WBC 10-13 (0-5/HPF) Ur Epithelial Cells MANY (NONE-FEW) Urine Bacteria 1+ H (NEGATIVE) Urine Mucus LIGHT (NONE-MOD) Ketones (NEG) Meds: Medications Discontinued Medications Generic Name Dose Route Start Last Admin Trade Name Freq PRN Reason Stop Dose Admin Diphenhydramine HCl 50 mg 05/11/21 15:49 05/11/21 16:21 Diphenhydramine 50 Mg/Ml Sdv IVPUSH 05/11/21 15:50 50 mg ONETIME ONE Administration Famotidine 20 mg 05/11/21 15:49 05/11/21 16:21 Famotidine 20 Mg/2 Ml Sdv IVPUSH 05/11/21 15:50 20 mg ONETIME ONE Administration Sodium Chloride 1,000 mls @ 999 mls/hr 05/11/21 15:49 05/11/21 16:21 Normal Saline IV 05/11/21 16:49 999 mls/hr .Bolus ONE Administration Sodium Chloride 1,000 mls @ 999 mls/hr 05/11/21 16:09 05/11/21 16:21 Normal Saline IV 05/11/21 17:09 999 mls/hr .Bolus ONE Administration Metoclopramide HCl 10 mg 05/11/21 17:55 Metoclopramide 10 Mg/2 Ml Sdv IVPUSH 10/16/21 17:56 ONETIME ONE Ondansetron HCl 4 mg 05/11/21 15:49 05/11/21 16:21 Ondansetron 4 Mg/2 Ml Sdv IVPUSH 05/11/21 15:50 4 mg ONETIME ONE Administration Ondansetron HCl 4 mg 05/11/21 17:34 05/11/21 17:41 Ondansetron 4 Mg/2 Ml Sdv IVPUSH 05/11/21 17:35 4 mg ONETIME ONE Administration Ondansetron HCl 4 mg 05/11/21 17:34 05/11/21 17:54 Ondansetron 4 Mg/2 Ml Sdv IVPUSH 05/11/21 17:35 Not Given ONETIME ONE - Re-Assessments/Exams Free Text/Narrative Re-Assessment/Exam: 05/11/21 16:10 We will give IV fluid bolus. Will give Zofran, Pepcid, Benadryl. Will get labs including quantitative beta-hCG, plasma and urine ketones. 05/11/21 17:34 Patient reports improvement in nausea after Zofran, Pepcid, Benadryl. She is still been unable to provide a urine sample. Will trial additional dose of Zofran. 05/11/21 18:05 Labs show persistent hypochloremia and hyponatremia. Patient does have urinary ketones but no serum ketones. I did run the case by Dr. Noel who recommends trialing Reglan and discharging with course of Reglan and Zofran. She does agree to follow-up with the patient early next week to place on hyperemesis protocol. Patient is agreeable with this plan. Departure - Departure Time of Disposition: 18:06 Disposition: Home, Self-Care 01 Condition: Good Clinical Impression: Hyperemesis complicating , antepartum - Discharge Information Instructions: Hyperemesis Gravidarum Referrals: PCP,None [Primary Care Provider] - Additional Instructions: You were called in a prescription for Zofran and Reglan. If there are any issues with the Zofran prescription please call back to the emergency department. You need to follow-up with your [facility]OE [facility] and establish a hyperemesis protocol. You are welcome to follow-up with Dr. Scott, or if you were unable to get on I did speak with our SHOE [facility]TER on-call Dr. Noel who states she can see you in the clinic early next week. Both of their information is provided below. You were also placed on a follow-up list so your visit summary was faxed to these clinics. If you are feeling persistently ill and not doing well at home you are always welcome to come back to the emergency department for reassessment. We do not always have the definitive fix for these types of issues but we are always happy to see you, provide fluid hydration if necessary, and help with acute symptom management. [facility] [address] [place] [address] [id number] [facility] [address] [place] [id number] The following information is given to patients seen in the emergency department who are being discharged to home. This information is to outline your options for follow-up care. We provide all patients seen in our emergency department with a follow-up referral. The need for follow-up, as well as the timing and circumstances, are variable depending upon the specifics of your emergency department visit. If you don't have a primary care physician on staff, we will provide you with a referral. We always advise you to contact your personal physician following an emergency department visit to inform them of the circumstance of the visit and for follow-up with them and/or the need for any referrals to a consulting specialist. The emergency department will also refer you to a specialist when appropriate. This referral assures that you have the opportunity for follow-up care with a specialist. All of these measure are taken in an effort to provide you with optimal care, which includes your follow-up. Under all circumstances we always encourage you to contact your private physician who remains a resource for coordinating your care. When calling for follow-up care, please make the office aware that this follow-up is from your recent emergency room visit. If for any reason you are refused follow-up, please contact the [facility] Emergency Department at and asked to speak to the emergency department charge nurse. Please follow up with your primary care physician. If you do not have a primary care physician, see below: [facility] [address] [place] [id number] [facility] [address] [place] [address] [facility] [address] [address] Sepsis Event Note (ED) - Focused Exam Vital Signs: Vital Signs Temp Pulse Resp BP Pulse Ox 05/11/21 17:50 77 18 107/74 97 05/11/21 15:55 96.8 F L 88 22 H 151/98 H 99 - My Orders Last 24 Hours: My Active Orders 05/11/21 15:49 Saline Lock Insert [OM.PC] Stat - Assessment/Plan Last 24 Hours: My Active Orders 05/11/21 15:49 Saline Lock Insert [OM.PC] Stat
[2021-05-11 17:06] LABS: BLOOD UREA NITROGEN,BUN 11 mg/dL (7.0-18.0); CHLORIDE,CL 90 mmol/L (98-107); GLUCOSE RANDOM 124 mg/dL (74-106); POTASSIUM,K 3.4 mmol/L (3.5-5.1); SODIUM,NA 131 mmol/L (136-145)
[2021-05-11] MEDS ORDERED: Metoclopramide 10 MG/2 ML SDV IVPUSH ONE (17:55)
[2021-05-11 18:47] VITALS: BP 89/58; PULSE 79
== END 2021-05-11 18:44 | disposition home or self-care (01) ==
LOC: MW.ED 15:46
DX: O21.0 Mild hyperemesis gravidarum (principal); Z88.1 Allergy status to other antibiotic agents; Z3A.01 Less than 8 weeks gestation of pregnancy
CPT/HCPCS: 36415; 80053; 81001; 82009; 84702; 85025; 96374; 96375; 96376; 99284; J1200; J2405; J2765; J3490; J7030

== ENCOUNTER 2023-02-06 21:37 | Emergency (ER) | payer SELFPAY ==
[2023-02-06] MEDS ORDERED: Sodium Chloride 0.9% 1,000 ML IV ONE ×2 (22:17→23:53)
[2023-02-06] MEDS ORDERED: Sodium Chloride 0.9% 2.5 ML Syringe FLUSH PRN (22:17)
[2023-02-06] MEDS ORDERED: Ondansetron 4 MG/2 ML SDV IVPUSH ONE (22:17)
[2023-02-06] MEDS ORDERED: Sodium Chloride 0.9% 10 ML Syringe FLUSH PRN (22:17)
[2023-02-06 22:41] LABS: BASOPHILS PERCENT AUTO 0.2 % (0.0-1.5); EOSINOPHILS PERCENT AUTO 0.1 % (0.0-7.0); HEMATOCRIT 45.8 % (36.0-46.0); HEMOGLOBIN 16.3 g/dL (12.0-16.0); LYMPHOCYTES ABSOLUTE AUTO 1.8 K/uL (0.6-2.4); LYMPHOCYTES PERCENT AUTO 14.9 % (16.0-40.0); MEAN CORPUSCULAR HEMOGLOBIN 31.1 pg (27.0-32.0); MEAN CORPUSCULAR HGB CONC 35.6 g/dL (31.0-37.0); MEAN CORPUSCULAR VOLUME 87.4 fL (80.0-98.0); MONOCYTES ABSOLUTE AUTO 0.8 K/uL (0.0-0.8); NEUTROPHILS ABSOLUTE AUTO 9.2 K/uL (1.4-5.7); NEUTROPHILS PERCENT AUTO 77.8 % (48.0-80.0); NRBC ABSOLUTE 0 K/uL; PLATELET COUNT,PLT 223 K/uL (150-400); RED BLOOD CELL COUNT 5.24 M/uL (4.30-5.90); WHITE BLOOD CELL COUNT,WBC 11.79 K/uL (4.0-11.0)
[2023-02-06 23:02] LABS: A/G RATIO 1.2 (0.9-1.6); ALBUMIN 4.4 g/dL (3.4-5.0); CALCIUM 9.9 mg/dL (8.5-10.1); CARBON DIOXIDE,CO2 25.2 mmol/L (21.0-32.0); CREATININE 0.8 mg/dL (0.6-1.0); EST CRCL DRUG DOSING (CG) 84.29 mL/min; POTASSIUM,K 3.5 mmol/L (3.5-5.1)
[2023-02-07 00:40] VITALS: BP 119/73; PULSE 70
== END 2023-02-07 00:40 | disposition home or self-care (01) ==
LOC: MW.ED 21:37
DX: O20.0 Threatened abortion (principal); O21.0 Mild hyperemesis gravidarum; Z88.1 Allergy status to other antibiotic agents; Z3A.01 Less than 8 weeks gestation of pregnancy
CPT/HCPCS: 36415; 76817; 80053; 83690; 84702; 85025; 86900; 86901; 96361; 96374; 99284; J2405; J3490; J7030

== ENCOUNTER 2024-05-11 13:04 | Emergency (ER) | payer MEDICAID ==
[2024-05-11 13:26] VITALS: BP 122/68; PULSE 70
[2024-05-11] MEDS: Acetaminophen 500 MG Tab PO ONE (13:45)
== END 2024-05-11 15:51 | disposition home or self-care (01) ==
LOC: MW.ED 13:04
DX: M24.231 Disorder of ligament, right wrist (principal); Z75.8 Other problems related to medical facilities and other health care; Z88.1 Allergy status to other antibiotic agents
CPT/HCPCS: 73110; 73130; 99283; A9270

== ENCOUNTER 2024-08-05 09:43 | Inpatient (IN) | payer MEDICAID ==
[2024-08-05] MEDS: Sodium Chloride 0.9% 1,000 ML IV STA ×3 (10:56→13:21)
[2024-08-05] MEDS: Metoclopramide 10 MG/2 ML SDV IVPUSH STA (10:56)
[2024-08-05] MEDS: diphenhydrAMINE 50 MG/ML SDV IVPUSH STA (10:57)
[2024-08-05 11:00] LABS: BASOPHILS ABSOLUTE AUTO 0.04 K/uL (0.00-0.20); BASOPHILS PERCENT AUTO 0.3 % (0.0-1.0); EOSINOPHILS ABSOLUTE AUTO 0.45 K/uL (0.00-0.45); EOSINOPHILS PERCENT AUTO 3.7 % (0.0-6.0); HEMATOCRIT 49.7 % (37.0-47.0); HEMOGLOBIN 17.8 g/dL (12.0-16.0); IMMATURE GRAN ABSOLUTE AUTO 0.04 K/uL (0.00-0.05); IMMATURE GRAN PERCENT AUTO 0.3 % (0.0-0.4); LYMPHOCYTES ABSOLUTE AUTO 1.84 K/uL (1.00-4.80); LYMPHOCYTES PERCENT AUTO 15.2 % (24.0-44.0); MEAN CORPUSCULAR HEMOGLOBIN 30.1 pg (28.0-32.0); MEAN CORPUSCULAR HGB CONC 35.8 g/dL (32.0-36.0); MEAN CORPUSCULAR VOLUME 84.1 fL (83.0-99.0); MEAN PLATELET VOLUME 11.6 fL (9.4-12.3); MONOCYTES ABSOLUTE AUTO 0.99 K/uL (0.00-0.80); MONOCYTES PERCENT AUTO 8.2 % (0.0-8.0); NEUTROPHILS ABSOLUTE AUTO 8.73 K/uL (1.80-7.70); NEUTROPHILS PERCENT AUTO 72.3 % (41.0-71.0); PLATELET COUNT,PLT 238 K/uL (150-400); RED BLOOD CELL COUNT 5.91 M/uL (4.10-5.30); WHITE BLOOD CELL COUNT,WBC 12.09 K/uL (3.9-11.3)
[2024-08-05 11:06] LABS: A/G RATIO 1.1 (0.9-1.6); ALBUMIN 4.6 g/dL (3.4-5.0); BILIRUBIN TOTAL 1.8 mg/dL (0.2-1.0); CALCIUM 10.7 mg/dL (8.5-10.1); CARBON DIOXIDE,CO2 29.9 mmol/L (21.0-32.0); CREATININE 0.8 mg/dL (0.6-1.0); EST CRCL DRUG DOSING (CG) 79.85 mL/min; POTASSIUM,K 3.2 mmol/L (3.5-5.1); PROTEIN TOTAL,TP 8.8 g/dL (6.4-8.2)
[2024-08-05] MEDS: Ondansetron 4 MG/2 ML SDV IVPUSH STA (11:44)
[2024-08-05 14:35] LABS: APPEARANCE,URINE SLT CLOUDY; BILIRUBIN,URINE SMALL (NEGATIVE); COLOR,URINE YELLOW; GLUCOSE,URINE NEGATIVE (NEGATIVE); KETONES,URINE >=80 mg/dL (NEGATIVE); LEUKOCYTE ESTERASE,URINE TRACE (NEGATIVE); NITRITE,URINE POSITIVE (NEGATIVE); OCCULT BLOOD,URINE NEGATIVE (NEGATIVE); PH,URINE 7.5 (5.0-8.0); PROTEIN,URINE >=300 mg/dL (NEGATIVE)
[2024-08-05 14:41] LABS: BACTERIA,URINE 2+ (NEGATIVE); EPITHELIAL CELLS,URINE MANY (NONE-FEW); MUCUS,URINE LIGHT (NONE-MOD); RBC,URINE 0-2 (0-2/HPF)
[2024-08-05] MEDS: Dextrose 5%-0.9% NaCl 1,000 ML IV STA (15:05)
[2024-08-05] MEDS: Promethazine 25 MG/ML SDV IM STA (15:07)
[2024-08-05] MEDS: Amoxicillin/Clavulanate K 875-125 MG Tab PO STA (15:09)
[2024-08-05] MEDS ORDERED: Acetaminophen 325 MG Tab PO PRN (16:37)
[2024-08-05] MEDS ORDERED: Sodium Chloride 0.9% 2.5 ML Syringe FLUSH PRN (16:37)
[2024-08-05] MEDS ORDERED: Sodium Chloride 0.9% 10 ML Syringe FLUSH PRN (16:37)
[2024-08-05] MEDS ORDERED: Thiamine 200 MG in Sodium Chloride 0.9% 100 ML IV SCH (16:45)
[2024-08-05] MEDS: Famotidine 20 MG/2 ML SDV IVPUSH SCH (17:04)
[2024-08-05] MEDS: Thiamine 200 MG/2 ML MDV IV SCH (17:06)
[2024-08-05] MEDS: Benzocaine/Cetylpyridinium/Menthol Lozenge MUCMEM PRN (17:06)
[2024-08-05] MEDS: Potassium Chloride 10 MEQ in Premix Bag 4 BAG IV ONE (17:07)
[2024-08-05] MEDS: Ondansetron 4 MG/2 ML SDV IVPUSH SCH (17:18)
[2024-08-05] MEDS: Folic Acid 1 MG/0.2 ML UD Syringe IV SCH (17:39)
[2024-08-05] MEDS ORDERED: Potassium Chloride 10 MEQ in Premix Bag 3 BAG IV SCH (19:45)
[2024-08-05] MEDS: Metoclopramide 10 MG/2 ML SDV IVPUSH PRN (21:09)
[2024-08-05] MEDS: Nitrofurantoin Monohydrate/Macrocrystalline 100 MG Cap PO SCH (21:12)
[2024-08-05] MEDS: Potassium Chloride 10 MEQ in Premix Bag 1 BAG IV ONE ×2 (21:30→23:05)
[2024-08-05] MEDS: Dextrose 5%-0.45% NaCl 1,000 ML IV SCH (21:35)
[2024-08-06] MEDS: diphenhydrAMINE 50 MG/ML SDV IVPUSH PRN (00:29)
[2024-08-06] MEDS: Potassium Chloride 10 MEQ in Premix Bag 1 BAG IV ONE (00:35)
[2024-08-06 06:23] LABS: BASOPHILS ABSOLUTE AUTO 0.02 K/uL (0.00-0.20); BASOPHILS PERCENT AUTO 0.3 % (0.0-1.0); EOSINOPHILS ABSOLUTE AUTO 0.02 K/uL (0.00-0.45); EOSINOPHILS PERCENT AUTO 0.3 % (0.0-6.0); HEMATOCRIT 37.7 % (37.0-47.0); HEMOGLOBIN 12.8 g/dL (12.0-16.0); IMMATURE GRAN ABSOLUTE AUTO 0.02 K/uL (0.00-0.05); IMMATURE GRAN PERCENT AUTO 0.3 % (0.0-0.4); LYMPHOCYTES ABSOLUTE AUTO 2.08 K/uL (1.00-4.80); LYMPHOCYTES PERCENT AUTO 28.7 % (24.0-44.0); MEAN CORPUSCULAR HEMOGLOBIN 30.3 pg (28.0-32.0); MEAN CORPUSCULAR VOLUME 89.3 fL (83.0-99.0); MONOCYTES ABSOLUTE AUTO 0.77 K/uL (0.00-0.80); MONOCYTES PERCENT AUTO 10.6 % (0.0-8.0); NEUTROPHILS ABSOLUTE AUTO 4.35 K/uL (1.80-7.70); NEUTROPHILS PERCENT AUTO 59.8 % (41.0-71.0); PLATELET COUNT,PLT 144 K/uL (150-400); RED BLOOD CELL COUNT 4.22 M/uL (4.10-5.30); WHITE BLOOD CELL COUNT,WBC 7.26 K/uL (3.9-11.3)
[2024-08-06 06:46] LABS: A/G RATIO 1.2 (0.9-1.6); ALBUMIN 3.2 g/dL (3.4-5.0); BILIRUBIN TOTAL 1.2 mg/dL (0.2-1.0); CALCIUM 8.5 mg/dL (8.5-10.1); CARBON DIOXIDE,CO2 26.9 mmol/L (21.0-32.0); CREATININE 0.7 mg/dL (0.6-1.0); EST CRCL DRUG DOSING (CG) 91.25 mL/min; MAGNESIUM 1.9 mg/dL (1.8-2.4); PHOSPHORUS 2.3 mg/dL (2.6-4.7); POTASSIUM,K 3.3 mmol/L (3.5-5.1); PROTEIN TOTAL,TP 5.9 g/dL (6.4-8.2)
[2024-08-06] MEDS ORDERED: Potassium Chloride 10 MEQ in Premix Bag 1 BAG IV ONE (07:13)
[2024-08-06] MEDS: Potassium Chloride 10 MEQ in Premix Bag 1 BAG IV SCH (08:28)
[2024-08-06] MEDS: Potassium Chloride 20 MEQ Tab.ER PO ONE (11:08)
[2024-08-06] MEDS: Magnesium Oxide 400 MG Tab PO ONE (11:08)
[2024-08-06] MEDS: Promethazine 25 MG/ML SDV IM PRN (13:19)
[2024-08-07 06:08] LABS: BASOPHILS ABSOLUTE AUTO 0.03 K/uL (0.00-0.20); BASOPHILS PERCENT AUTO 0.3 % (0.0-1.0); EOSINOPHILS ABSOLUTE AUTO 0.05 K/uL (0.00-0.45); EOSINOPHILS PERCENT AUTO 0.5 % (0.0-6.0); HEMATOCRIT 39.8 % (37.0-47.0); HEMOGLOBIN 13.8 g/dL (12.0-16.0); IMMATURE GRAN ABSOLUTE AUTO 0.02 K/uL (0.00-0.05); IMMATURE GRAN PERCENT AUTO 0.2 % (0.0-0.4); LYMPHOCYTES ABSOLUTE AUTO 2.21 K/uL (1.00-4.80); MEAN CORPUSCULAR HEMOGLOBIN 29.9 pg (28.0-32.0); MEAN CORPUSCULAR HGB CONC 34.7 g/dL (32.0-36.0); MEAN CORPUSCULAR VOLUME 86.3 fL (83.0-99.0); MEAN PLATELET VOLUME 10.9 fL (9.4-12.3); MONOCYTES PERCENT AUTO 8.3 % (0.0-8.0); NEUTROPHILS ABSOLUTE AUTO 6.51 K/uL (1.80-7.70); NEUTROPHILS PERCENT AUTO 67.7 % (41.0-71.0); PLATELET COUNT,PLT 160 K/uL (150-400); RED BLOOD CELL COUNT 4.61 M/uL (4.10-5.30); WHITE BLOOD CELL COUNT,WBC 9.62 K/uL (3.9-11.3)
[2024-08-07 06:32] LABS: CALCIUM 8.9 mg/dL (8.5-10.1); CARBON DIOXIDE,CO2 24.9 mmol/L (21.0-32.0); CREATININE 0.5 mg/dL (0.6-1.0); EST CRCL DRUG DOSING (CG) 127.76 mL/min; MAGNESIUM 1.9 mg/dL (1.8-2.4); POTASSIUM,K 3.2 mmol/L (3.5-5.1)
[2024-08-07] MEDS: Potassium Chloride 20 MEQ Tab.ER PO SCH (09:55)
[2024-08-08] MEDS: Potassium Chloride 20 MEQ Tab.ER PO ONE (00:12)
[2024-08-08 05:56] LABS: BASOPHILS ABSOLUTE AUTO 0.03 K/uL (0.00-0.20); BASOPHILS PERCENT AUTO 0.3 % (0.0-1.0); EOSINOPHILS ABSOLUTE AUTO 0.05 K/uL (0.00-0.45); EOSINOPHILS PERCENT AUTO 0.6 % (0.0-6.0); HEMATOCRIT 40.7 % (37.0-47.0); HEMOGLOBIN 14.3 g/dL (12.0-16.0); IMMATURE GRAN ABSOLUTE AUTO 0.02 K/uL (0.00-0.05); IMMATURE GRAN PERCENT AUTO 0.2 % (0.0-0.4); LYMPHOCYTES ABSOLUTE AUTO 2.02 K/uL (1.00-4.80); LYMPHOCYTES PERCENT AUTO 22.6 % (24.0-44.0); MEAN CORPUSCULAR HEMOGLOBIN 30.5 pg (28.0-32.0); MEAN CORPUSCULAR HGB CONC 35.1 g/dL (32.0-36.0); MEAN CORPUSCULAR VOLUME 86.8 fL (83.0-99.0); MEAN PLATELET VOLUME 11.1 fL (9.4-12.3); MONOCYTES ABSOLUTE AUTO 0.73 K/uL (0.00-0.80); MONOCYTES PERCENT AUTO 8.2 % (0.0-8.0); NEUTROPHILS ABSOLUTE AUTO 6.09 K/uL (1.80-7.70); NEUTROPHILS PERCENT AUTO 68.1 % (41.0-71.0); PLATELET COUNT,PLT 163 K/uL (150-400); RED BLOOD CELL COUNT 4.69 M/uL (4.10-5.30); WHITE BLOOD CELL COUNT,WBC 8.94 K/uL (3.9-11.3)
[2024-08-08 06:21] LABS: CALCIUM 8.8 mg/dL (8.5-10.1); CARBON DIOXIDE,CO2 23.7 mmol/L (21.0-32.0); CREATININE 0.6 mg/dL (0.6-1.0); EST CRCL DRUG DOSING (CG) 106.46 mL/min; MAGNESIUM 1.8 mg/dL (1.8-2.4); POTASSIUM,K 3.8 mmol/L (3.5-5.1)
[2024-08-08 08:42] VITALS: BP 119/82
[2024-08-08 11:46] VITALS: PULSE 85
== END 2024-08-08 11:30 | disposition home or self-care (01) | DRG 832 ==
LOC: MW.ED 09:43 → MW.MS 15:41
PROVIDERS: ADMIT Family Medicine; ATTEND Family Medicine
DX: O21.0 Mild hyperemesis gravidarum (principal); O12.11 Gestational proteinuria, first trimester; O23.91 Unspecified genitourinary tract infection in pregnancy, first trimester; R78.81 Bacteremia; O23.41 Unspecified infection of urinary tract in pregnancy, first trimester; Z88.1 Allergy status to other antibiotic agents; Z75.8 Other problems related to medical facilities and other health care; E86.0 Dehydration; O26.891 Other specified pregnancy related conditions, first trimester; Z3A.01 Less than 8 weeks gestation of pregnancy
CPT/HCPCS: 36415; 76817; 80053; 81001; 83690; 83735; 84702; 85025; 87086; 96361; 96372; 96374; 96375; 99285; A9270; J1200; J2405; J2550; J2765; J7030 ×3; J7042; 80048; 82947; 84100; 99222; 99232; 99238; 99284; J3411; J3480; J3490; J7799

== ENCOUNTER 2024-08-12 11:33 | Emergency (ER) | payer MEDICAID ==
[2024-08-12] MEDS: Promethazine 25 MG/ML SDV IM ONE (12:07)
[2024-08-12] MEDS: Sodium Chloride 0.9% 1,000 ML IV ONE ×2 (12:07→13:34)
[2024-08-12 12:11] LABS: BASOPHILS ABSOLUTE AUTO 0.04 K/uL (0.00-0.20); BASOPHILS PERCENT AUTO 0.3 % (0.0-1.0); EOSINOPHILS ABSOLUTE AUTO 0.04 K/uL (0.00-0.45); EOSINOPHILS PERCENT AUTO 0.3 % (0.0-6.0); HEMATOCRIT 47.3 % (37.0-47.0); HEMOGLOBIN 17.1 g/dL (12.0-16.0); IMMATURE GRAN ABSOLUTE AUTO 0.05 K/uL (0.00-0.05); IMMATURE GRAN PERCENT AUTO 0.4 % (0.0-0.4); LYMPHOCYTES ABSOLUTE AUTO 2.37 K/uL (1.00-4.80); LYMPHOCYTES PERCENT AUTO 20.2 % (24.0-44.0); MEAN CORPUSCULAR HEMOGLOBIN 30.4 pg (28.0-32.0); MEAN CORPUSCULAR HGB CONC 36.2 g/dL (32.0-36.0); MEAN CORPUSCULAR VOLUME 84.2 fL (83.0-99.0); MEAN PLATELET VOLUME 10.9 fL (9.4-12.3); MONOCYTES ABSOLUTE AUTO 0.96 K/uL (0.00-0.80); MONOCYTES PERCENT AUTO 8.2 % (0.0-8.0); NEUTROPHILS ABSOLUTE AUTO 8.26 K/uL (1.80-7.70); NEUTROPHILS PERCENT AUTO 70.6 % (41.0-71.0); PLATELET COUNT,PLT 238 K/uL (150-400); RED BLOOD CELL COUNT 5.62 M/uL (4.10-5.30); WHITE BLOOD CELL COUNT,WBC 11.72 K/uL (3.9-11.3)
[2024-08-12 12:45] LABS: A/G RATIO 1.2 (0.9-1.6); ALBUMIN 4.4 g/dL (3.4-5.0); BILIRUBIN TOTAL 1.3 mg/dL (0.2-1.0); CALCIUM 9.7 mg/dL (8.5-10.1); CARBON DIOXIDE,CO2 25.8 mmol/L (21.0-32.0); CREATININE 0.8 mg/dL (0.6-1.0); EST CRCL DRUG DOSING (CG) 83.51 mL/min; POTASSIUM,K 3.5 mmol/L (3.5-5.1)
[2024-08-12 13:43] LABS: T3 FREE 3.92 pg/mL (2.18-3.98); T4 FREE 2.18 ng/dL (0.76-1.46)
[2024-08-12 15:23] VITALS: BP 105/68; PULSE 70
== END 2024-08-12 15:28 | disposition home or self-care (01) ==
LOC: MW.ED 11:33
DX: O21.9 Vomiting of pregnancy, unspecified (principal); O99.281 Endocrine, nutritional and metabolic diseases complicating pregnancy, first trimester; E86.0 Dehydration; E05.90 Thyrotoxicosis, unspecified without thyrotoxic crisis or storm; Z3A.08 8 weeks gestation of pregnancy; Z88.1 Allergy status to other antibiotic agents; Z75.8 Other problems related to medical facilities and other health care
CPT/HCPCS: 36415; 80053; 84439; 84443; 84481; 85025; 93005; 96360; 96361; 96372; 99285; J2550; J7030

== ENCOUNTER 2024-08-30 10:32 | Emergency (ER) | payer MEDICAID ==
[2024-08-30] MEDS: Sodium Chloride 0.9% 1,000 ML IV ONE (11:05)
[2024-08-30] MEDS: Ondansetron 4 MG/2 ML SDV IVPUSH ONE (11:05)
[2024-08-30 11:09] LABS: BASOPHILS ABSOLUTE AUTO 0.02 K/uL (0.00-0.20); BASOPHILS PERCENT AUTO 0.2 % (0.0-1.0); EOSINOPHILS ABSOLUTE AUTO 0.02 K/uL (0.00-0.45); EOSINOPHILS PERCENT AUTO 0.2 % (0.0-6.0); HEMATOCRIT 41.9 % (37.0-47.0); HEMOGLOBIN 15.4 g/dL (12.0-16.0); IMMATURE GRAN ABSOLUTE AUTO 0.02 K/uL (0.00-0.05); IMMATURE GRAN PERCENT AUTO 0.2 % (0.0-0.4); LYMPHOCYTES ABSOLUTE AUTO 1.79 K/uL (1.00-4.80); LYMPHOCYTES PERCENT AUTO 18.8 % (24.0-44.0); MEAN CORPUSCULAR HEMOGLOBIN 30.3 pg (28.0-32.0); MEAN CORPUSCULAR HGB CONC 36.8 g/dL (32.0-36.0); MEAN CORPUSCULAR VOLUME 82.5 fL (83.0-99.0); MEAN PLATELET VOLUME 9.6 fL (9.4-12.3); MONOCYTES PERCENT AUTO 7.4 % (0.0-8.0); NEUTROPHILS ABSOLUTE AUTO 6.95 K/uL (1.80-7.70); NEUTROPHILS PERCENT AUTO 73.2 % (41.0-71.0); PLATELET COUNT,PLT 265 K/uL (150-400); RED BLOOD CELL COUNT 5.08 M/uL (4.10-5.30)
[2024-08-30 11:52] LABS: A/G RATIO 1.2 (0.9-1.6); CALCIUM 9.5 mg/dL (8.5-10.1); CARBON DIOXIDE,CO2 21.3 mmol/L (21.0-32.0); CREATININE 0.6 mg/dL (0.6-1.0); EST CRCL DRUG DOSING (CG) 106.46 mL/min; MAGNESIUM 1.7 mg/dL (1.8-2.4); POTASSIUM,K 3.5 mmol/L (3.5-5.1); PROTEIN TOTAL,TP 7.3 g/dL (6.4-8.2); T3 FREE 3.92 pg/mL (2.18-3.98); T4 FREE 1.85 ng/dL (0.76-1.46); TSH ULTRASENSITIVE 0.07 uIU/mL (0.36-3.74)
[2024-08-30 13:16] LABS: APPEARANCE,URINE SLT CLOUDY; COLOR,URINE YELLOW; GLUCOSE,URINE NEGATIVE (NEGATIVE); PROTEIN,URINE 30 mg/dL (NEGATIVE)
[2024-08-30 13:17] LABS: KETONES,URINE >80 mg/dL (NEGATIVE)
[2024-08-30 13:18] LABS: BILIRUBIN,URINE NEGATIVE (NEGATIVE); LEUKOCYTE ESTERASE,URINE NEGATIVE (NEGATIVE); NITRITE,URINE NEGATIVE (NEGATIVE); OCCULT BLOOD,URINE NEGATIVE (NEGATIVE); UROBILINOGEN,URINE 0.2 EU/dL (<2.0)
[2024-08-30 13:21] LABS: EPITHELIAL CELLS,URINE MODERATE (NONE-FEW); RBC,URINE 0-2 (0-2/HPF)
[2024-08-30 13:22] LABS: BACTERIA,URINE FEW (NEGATIVE); MUCUS,URINE MODERATE (NONE-MOD)
[2024-08-30 13:32] VITALS: BP 121/69; PULSE 81
== END 2024-08-30 13:48 | disposition home or self-care (01) ==
LOC: MW.ED 10:32
DX: O99.282 Endocrine, nutritional and metabolic diseases complicating pregnancy, second trimester (principal); E05.90 Thyrotoxicosis, unspecified without thyrotoxic crisis or storm; O21.9 Vomiting of pregnancy, unspecified; O99.891 Other specified diseases and conditions complicating pregnancy; R07.9 Chest pain, unspecified; Z3A.18 18 weeks gestation of pregnancy; Z79.899 Other long term (current) drug therapy; Z88.1 Allergy status to other antibiotic agents; Z75.8 Other problems related to medical facilities and other health care
CPT/HCPCS: 36415; 80053; 81001; 83735; 84439; 84443; 84481; 84484; 85025; 87428; 93005; 96361; 96374; 99285; J2405; J7030